=== PATIENT | female | born 1965 | race Caucasian/White ===

== ENCOUNTER → 2017-02-11 | Outpatient (CLI) | payer MEDICARE ==
[~2017-02-11] MED LIST: ADVAIR DISKUS 11 DSK; AMBIEN5 MG PO; ASPIRIN81 M1 PO; BACTRIM 400 MG-1 TAB PO; CELLCEPT500 MG PO; CLINDAMYCIN HC300 MG PO; COMPAZINE10 MG PO; HYDROCODONE BIT1 T11 PO; IBUPROFEN 30 M800 MG; LABETALOL HCL200 MG PO; LABETALOL100 MG PO; LEVOFLOXACIN500 MG PO; LEVOXYL0.125 MG PO; LIPITOR40 MG PO; MAGNESIUM250 M1 PO; MULTIPLE VITAMI1 TAB PO; PAXIL40 MG PO; PHARMAC PO; PHOSLYRA; PLAVIX75 MG PO; PREDNISONE10 MG PO; PROGRAF1 MG PO; RENAL MULTIVITA1 TAB; REQUIP0.25 MG; SENSIPAR90 MG; THE MEDICINE S400 IU PO; VALCYTE450 MG PO; VICODIN 5/500 505 M1; VICODIN 5/500 505 MG PO; VITAMIN B COMPL1 CAP PO; XANAX0.5 MG PO; ZANTAC 150150 MG PO; ZOFRAN ODT4 MG SL
[2017-02-11 14:21] LABS: BILIRUBIN NEGATIVE (NEGATIVE); BLOOD NEGATIVE (NEGATIVE); CLARITY SL CLOUDY (CLEAR); COLOR YELLOW (YELLOW); GLUCOSE NEGATIVE (NEGATIVE); KETONE NEGATIVE (NEGATIVE); LEUKO ESTERASE NEGATIVE (NEGATIVE); NITRITE NEGATIVE (NEGATIVE); PH 5.5 (5.0-9.0); PROTEIN NEGATIVE (NEGATIVE); UROBILINOGEN 0.2 E.U./dl (0.2-1.0)
[2017-02-11 14:26] LABS: BASO # 0.1 10*3/uL (0.0-0.1); BASO % 0.5 % (0.0-1.0); EOS # 0.1 10*3/uL (0.0-0.4); EOS % 0.8 % (1.0-4.0); HEMATOCRIT 45.9 % (37.0-47.0); HEMOGLOBIN 14.4 g/dl (12.0-16.0); IG # 0.1 10*3/uL (0.0-0.1); LYMPH # 0.6 10*3/uL (1.3-4.4); LYMPH % 4.7 % (27.0-41.0); MEAN CELL VOLUME 96.2 fl (81.0-99.0); MEAN CORPUSCULAR HGB 30.2 pg (27.0-31.0); MEAN CORPUSCULAR HGB CONC 31.4 g/dl (33.0-37.0); MEAN PLATELET VOLUME 10.6 fl (9.6-12.3); MONO # 0.6 10*3/uL (0.1-1.0); MONO % 4.2 % (3.0-9.0); NEUT # 11.8 10*3/uL (2.3-7.9); NEUT % 89.3 % (47.0-73.0); PLATELET COUNT AUTOMATED 223 10*3/uL (130-400); RED BLOOD COUNT 4.77 10*6/uL (4.10-5.10); RED CELL DISTRI WIDTH 15.5 % (0-14.5); WHITE BLOOD COUNT 13.2 10*3/uL (4.8-10.8)
[2017-02-11 14:46] LABS: ALBUMIN 3.6 gm/dl (3.1-4.5); BILIRUBIN, TOTAL 0.4 mg/dl (0.2-1.0); MAGNESIUM 1.7 mg/dL (1.5-2.1); PHOSPHOROUS 1.8 mg/dL (2.5-4.9); POTASSIUM 4.5 mmol/L (3.5-5.1); TOTAL PROTEIN 6.6 gm/dL (6.4-8.2); URIC ACID 7.9 mg/dL (2.6-6.0)
== END | disposition home or self-care (01) ==
LOC: LAB 13:48
PROVIDERS: Internal Medicine Nephrology
DX: Z94.0 Kidney transplant status (principal)

== ENCOUNTER → 2017-03-03 | Outpatient (CLI) | payer MEDICARE ==
[2017-03-03 11:06] LABS: BILIRUBIN NEGATIVE (NEGATIVE); BLOOD 3+ (NEGATIVE); CLARITY SL CLOUDY (CLEAR); COLOR YELLOW (YELLOW); GLUCOSE NEGATIVE (NEGATIVE); KETONE NEGATIVE (NEGATIVE); LEUKO ESTERASE TRACE (NEGATIVE); NITRITE NEGATIVE (NEGATIVE); PROTEIN NEGATIVE (NEGATIVE); UROBILINOGEN 0.2 E.U./dl (0.2-1.0)
[2017-03-03 11:06] LABS: BASO # 0.1 10*3/uL (0.0-0.1); BASO % 0.6 % (0.0-1.0); EOS # 0.2 10*3/uL (0.0-0.4); EOS % 2.2 % (1.0-4.0); HEMATOCRIT 47.7 % (37.0-47.0); HEMOGLOBIN 14.9 g/dl (12.0-16.0); LYMPH # 0.9 10*3/uL (1.3-4.4); LYMPH % 11.3 % (27.0-41.0); MEAN CELL VOLUME 95.4 fl (81.0-99.0); MEAN CORPUSCULAR HGB 29.8 pg (27.0-31.0); MEAN CORPUSCULAR HGB CONC 31.2 g/dl (33.0-37.0); MEAN PLATELET VOLUME 10.4 fl (9.6-12.3); MONO # 0.6 10*3/uL (0.1-1.0); MONO % 8.1 % (3.0-9.0); NEUT % 77.3 % (47.0-73.0); PLATELET COUNT AUTOMATED 223 10*3/uL (130-400); RED CELL DISTRI WIDTH 14.6 % (0-14.5); WHITE BLOOD COUNT 7.8 10*3/uL (4.8-10.8)
[2017-03-03 11:37] LABS: ALBUMIN 3.6 gm/dl (3.1-4.5); BILIRUBIN, TOTAL 0.6 mg/dl (0.2-1.0); MAGNESIUM 1.9 mg/dL (1.5-2.1); PHOSPHOROUS 2.7 mg/dL (2.5-4.9); POTASSIUM 4.8 mmol/L (3.5-5.1); TOTAL PROTEIN 6.7 gm/dL (6.4-8.2); URIC ACID 7.8 mg/dL (2.6-6.0)
[2017-03-03 11:53] LABS: VITAMIN D, 25-HYDROXY 31.8 ng/mL (30-100)
== END | disposition home or self-care (01) ==
LOC: LAB 10:14
PROVIDERS: Internal Medicine Nephrology
DX: I10 Essential (primary) hypertension (principal); E21.3 Hyperparathyroidism, unspecified; Z94.0 Kidney transplant status

== ENCOUNTER → 2017-07-02 | Outpatient (CLI) | payer MEDICARE ==
[2017-07-02 10:48] LABS: BASO # 0.1 10*3/uL (0.0-0.1); BASO % 0.9 % (0.0-1.0); EOS # 0.3 10*3/uL (0.0-0.4); EOS % 3.5 % (1.0-4.0); HEMATOCRIT 39.9 % (37.0-47.0); HEMOGLOBIN 12.6 g/dl (12.0-16.0); LYMPH % 12.4 % (27.0-41.0); MEAN CELL VOLUME 95.5 fl (81.0-99.0); MEAN CORPUSCULAR HGB 30.1 pg (27.0-31.0); MEAN CORPUSCULAR HGB CONC 31.6 g/dl (33.0-37.0); MONO # 0.6 10*3/uL (0.1-1.0); MONO % 8.1 % (3.0-9.0); NEUT # 5.9 10*3/uL (2.3-7.9); NEUT % 74.5 % (47.0-73.0); PLATELET COUNT AUTOMATED 256 10*3/uL (130-400); RED BLOOD COUNT 4.18 10*6/uL (4.10-5.10); RED CELL DISTRI WIDTH 14.6 % (0-14.5); WHITE BLOOD COUNT 7.9 10*3/uL (4.8-10.8)
[2017-07-02 10:59] LABS: BILIRUBIN NEGATIVE (NEGATIVE); BLOOD 3+ (NEGATIVE); CLARITY CLOUDY (CLEAR); COLOR YELLOW (YELLOW); GLUCOSE NEGATIVE (NEGATIVE); KETONE NEGATIVE (NEGATIVE); LEUKO ESTERASE NEGATIVE (NEGATIVE); NITRITE NEGATIVE (NEGATIVE); PH 5.5 (5.0-9.0); SPECIFIC GRAVITY 1.015 (1.005-1.030); UROBILINOGEN 0.2 E.U./dl (0.2-1.0)
[2017-07-02 11:10] LABS: ALBUMIN 3.5 gm/dl (3.1-4.5); CREATININE 2.19 mg/dL (0.55-1.02); PHOSPHOROUS 3.2 mg/dL (2.5-4.9); POTASSIUM 3.9 mmol/L (3.5-5.1); TOTAL PROTEIN 6.6 gm/dL (6.4-8.2); URIC ACID 7.3 mg/dL (2.6-6.0)
[2017-07-02 12:28] LABS: VITAMIN D, 25-HYDROXY 24.8 ng/mL (30-100)
[2017-07-02 12:40] LABS: PTH INTACT 135.6 pg/mL (14.0-72.0)
== END | disposition home or self-care (01) ==
LOC: LAB 10:21
PROVIDERS: Internal Medicine Nephrology
DX: E21.3 Hyperparathyroidism, unspecified (principal); Z94.0 Kidney transplant status

== ENCOUNTER → 2017-07-23 | Outpatient (CLI) | payer MEDICARE ==
[2017-07-23 11:50] LABS: BASO # 0.1 10*3/uL (0.0-0.1); BASO % 0.8 % (0.0-1.0); EOS # 0.2 10*3/uL (0.0-0.4); HEMATOCRIT 43.9 % (37.0-47.0); HEMOGLOBIN 14.1 g/dl (12.0-16.0); LYMPH # 1.4 10*3/uL (1.3-4.4); LYMPH % 15.6 % (27.0-41.0); MEAN CELL VOLUME 95.9 fl (81.0-99.0); MEAN CORPUSCULAR HGB 30.8 pg (27.0-31.0); MEAN CORPUSCULAR HGB CONC 32.1 g/dl (33.0-37.0); MEAN PLATELET VOLUME 9.6 fl (9.6-12.3); MONO # 0.6 10*3/uL (0.1-1.0); MONO % 6.8 % (3.0-9.0); NEUT # 6.6 10*3/uL (2.3-7.9); NEUT % 74.5 % (47.0-73.0); PLATELET COUNT AUTOMATED 252 10*3/uL (130-400); RED BLOOD COUNT 4.58 10*6/uL (4.10-5.10); RED CELL DISTRI WIDTH 13.8 % (0-14.5); WHITE BLOOD COUNT 8.8 10*3/uL (4.8-10.8)
[2017-07-23 12:15] LABS: CREATININE 2.3 mg/dL (0.55-1.02); PHOSPHOROUS 3.4 mg/dL (2.5-4.9); POTASSIUM 3.9 mmol/L (3.5-5.1); URIC ACID 7.6 mg/dL (2.6-6.0)
== END | disposition home or self-care (01) ==
LOC: LAB 11:33
PROVIDERS: Internal Medicine Nephrology
DX: D89.9 Disorder involving the immune mechanism, unspecified (principal); E83.40 Disorders of magnesium metabolism, unspecified; T86.90 Unspecified complication of unspecified transplanted organ and tissue; Z94.0 Kidney transplant status; Z79.899 Other long term (current) drug therapy

== ENCOUNTER → 2017-08-03 | Outpatient (CLI) | payer MEDICARE ==
[2017-08-03 10:20] LABS: BASO # 0.1 10*3/uL (0.0-0.1); BASO % 0.6 % (0.0-1.0); EOS # 0.3 10*3/uL (0.0-0.4); EOS % 3.3 % (1.0-4.0); HEMATOCRIT 43.4 % (37.0-47.0); HEMOGLOBIN 13.5 g/dl (12.0-16.0); LYMPH # 0.8 10*3/uL (1.3-4.4); LYMPH % 10.5 % (27.0-41.0); MEAN CELL VOLUME 95.2 fl (81.0-99.0); MEAN CORPUSCULAR HGB 29.6 pg (27.0-31.0); MEAN CORPUSCULAR HGB CONC 31.1 g/dl (33.0-37.0); MEAN PLATELET VOLUME 9.3 fl (9.6-12.3); MONO # 0.5 10*3/uL (0.1-1.0); MONO % 5.7 % (3.0-9.0); NEUT # 6.2 10*3/uL (2.3-7.9); NEUT % 79.4 % (47.0-73.0); PLATELET COUNT AUTOMATED 255 10*3/uL (130-400); RED BLOOD COUNT 4.56 10*6/uL (4.10-5.10); RED CELL DISTRI WIDTH 14.1 % (0-14.5); WHITE BLOOD COUNT 7.9 10*3/uL (4.8-10.8)
[2017-08-03 10:31] LABS: BILIRUBIN NEGATIVE (NEGATIVE); BLOOD NEGATIVE (NEGATIVE); CLARITY SL CLOUDY (CLEAR); COLOR YELLOW (YELLOW); GLUCOSE NEGATIVE (NEGATIVE); KETONE NEGATIVE (NEGATIVE); NITRITE NEGATIVE (NEGATIVE); SPECIFIC GRAVITY 1.015 (1.005-1.030); UROBILINOGEN 0.2 E.U./dl (0.2-1.0)
[2017-08-03 10:36] LABS: LEUKO ESTERASE NEGATIVE (NEGATIVE)
[2017-08-03 10:55] LABS: ALBUMIN 3.6 gm/dl (3.1-4.5); CREATININE 2.27 mg/dL (0.55-1.02); PHOSPHOROUS 2.3 mg/dL (2.5-4.9); TOTAL PROTEIN 6.6 gm/dL (6.4-8.2); URIC ACID 7.5 mg/dL (2.6-6.0)
[2017-08-03 11:31] LABS: PTH INTACT 73.4 pg/mL (14.0-72.0); VITAMIN D, 25-HYDROXY 25.2 ng/mL (30-100)
== END | disposition home or self-care (01) ==
LOC: LAB 09:54
PROVIDERS: Internal Medicine Nephrology
DX: I10 Essential (primary) hypertension (principal); D89.9 Disorder involving the immune mechanism, unspecified; T86.90 Unspecified complication of unspecified transplanted organ and tissue; E83.40 Disorders of magnesium metabolism, unspecified; Z79.899 Other long term (current) drug therapy; Z94.0 Kidney transplant status

== ENCOUNTER → 2017-08-10 | Outpatient (CLI) | payer MEDICARE ==
[2017-08-10 08:53] LABS: BASO # 0.1 10*3/uL (0.0-0.1); BASO % 0.5 % (0.0-1.0); EOS # 0.3 10*3/uL (0.0-0.4); EOS % 2.8 % (1.0-4.0); HEMATOCRIT 42.1 % (37.0-47.0); HEMOGLOBIN 13.6 g/dl (12.0-16.0); LYMPH # 1.1 10*3/uL (1.3-4.4); LYMPH % 11.5 % (27.0-41.0); MEAN CELL VOLUME 94.8 fl (81.0-99.0); MEAN CORPUSCULAR HGB 30.6 pg (27.0-31.0); MEAN CORPUSCULAR HGB CONC 32.3 g/dl (33.0-37.0); MEAN PLATELET VOLUME 9.7 fl (9.6-12.3); MONO # 0.7 10*3/uL (0.1-1.0); MONO % 6.9 % (3.0-9.0); NEUT # 7.7 10*3/uL (2.3-7.9); NEUT % 77.8 % (47.0-73.0); PLATELET COUNT AUTOMATED 249 10*3/uL (130-400); RED BLOOD COUNT 4.44 10*6/uL (4.10-5.10); RED CELL DISTRI WIDTH 14.2 % (0-14.5); WHITE BLOOD COUNT 9.9 10*3/uL (4.8-10.8)
[2017-08-10 09:18] LABS: CREATININE 1.86 mg/dL (0.55-1.02); PHOSPHOROUS 2.7 mg/dL (2.5-4.9); POTASSIUM 3.3 mmol/L (3.5-5.1); URIC ACID 8.2 mg/dL (2.6-6.0)
== END | disposition home or self-care (01) ==
LOC: LAB 08:22
PROVIDERS: Internal Medicine Nephrology
DX: D89.9 Disorder involving the immune mechanism, unspecified (principal); E83.40 Disorders of magnesium metabolism, unspecified; T86.90 Unspecified complication of unspecified transplanted organ and tissue; Z79.899 Other long term (current) drug therapy; Z94.0 Kidney transplant status

== ENCOUNTER → 2017-08-18 | Outpatient (CLI) | payer MEDICARE ==
[2017-08-18 12:08] LABS: CREATININE 1.65 mg/dL (0.55-1.02); PHOSPHOROUS 2.6 mg/dL (2.5-4.9); POTASSIUM 4.1 mmol/L (3.5-5.1); URIC ACID 6.5 mg/dL (2.6-6.0)
[2017-08-18 12:16] LABS: BASO # 0.1 10*3/uL (0.0-0.1); BASO % 0.5 % (0.0-1.0); EOS # 0.2 10*3/uL (0.0-0.4); EOS % 1.6 % (1.0-4.0); HEMATOCRIT 44.7 % (37.0-47.0); HEMOGLOBIN 14.2 g/dl (12.0-16.0); LYMPH # 1.2 10*3/uL (1.3-4.4); MEAN CELL VOLUME 94.5 fl (81.0-99.0); MEAN CORPUSCULAR HGB CONC 31.8 g/dl (33.0-37.0); MEAN PLATELET VOLUME 9.9 fl (9.6-12.3); MONO # 0.8 10*3/uL (0.1-1.0); MONO % 7.7 % (3.0-9.0); NEUT # 8.2 10*3/uL (2.3-7.9); NEUT % 78.6 % (47.0-73.0); PLATELET COUNT AUTOMATED 324 10*3/uL (130-400); RED BLOOD COUNT 4.73 10*6/uL (4.10-5.10); RED CELL DISTRI WIDTH 14.6 % (0-14.5); WHITE BLOOD COUNT 10.5 10*3/uL (4.8-10.8)
== END | disposition home or self-care (01) ==
LOC: LAB 11:35
PROVIDERS: Internal Medicine Nephrology
DX: D89.9 Disorder involving the immune mechanism, unspecified (principal); T86.90 Unspecified complication of unspecified transplanted organ and tissue; E83.40 Disorders of magnesium metabolism, unspecified; Z94.0 Kidney transplant status; Z79.899 Other long term (current) drug therapy

== ENCOUNTER → 2017-10-08 | Outpatient (CLI) | payer MEDICARE ==
[2017-10-08 14:59] LABS: BASO # 0.1 10*3/uL (0.0-0.1); BASO % 1.1 % (0.0-1.0); EOS # 0.2 10*3/uL (0.0-0.4); EOS % 2.2 % (1.0-4.0); HEMATOCRIT 46.5 % (37.0-47.0); LYMPH % 13.6 % (27.0-41.0); MEAN CELL VOLUME 91.7 fl (81.0-99.0); MEAN CORPUSCULAR HGB 29.6 pg (27.0-31.0); MEAN CORPUSCULAR HGB CONC 32.3 g/dl (33.0-37.0); MEAN PLATELET VOLUME 10.1 fl (9.6-12.3); MONO # 0.6 10*3/uL (0.1-1.0); MONO % 7.9 % (3.0-9.0); NEUT # 5.7 10*3/uL (2.3-7.9); NEUT % 74.8 % (47.0-73.0); PLATELET COUNT AUTOMATED 275 10*3/uL (130-400); RED BLOOD COUNT 5.07 10*6/uL (4.10-5.10); RED CELL DISTRI WIDTH 14.5 % (0-14.5); WHITE BLOOD COUNT 7.6 10*3/uL (4.8-10.8)
[2017-10-08 15:07] LABS: BILIRUBIN NEGATIVE (NEGATIVE); BLOOD 3+ (NEGATIVE); CLARITY CLOUDY (CLEAR); COLOR YELLOW (YELLOW); GLUCOSE NEGATIVE (NEGATIVE); KETONE NEGATIVE (NEGATIVE); LEUKO ESTERASE NEGATIVE (NEGATIVE); NITRITE NEGATIVE (NEGATIVE); PH 5.5 (5.0-9.0); UROBILINOGEN 0.2 E.U./dl (0.2-1.0)
[2017-10-08 15:13] LABS: ALBUMIN 3.8 gm/dl (3.1-4.5); CREATININE 2.39 mg/dL (0.55-1.02); PHOSPHOROUS 3.3 mg/dL (2.5-4.9); POTASSIUM 4.4 mmol/L (3.5-5.1); TOTAL PROTEIN 6.9 gm/dL (6.4-8.2); URIC ACID 8.5 mg/dL (2.6-6.0)
[2017-10-08 15:45] LABS: PTH INTACT 76.7 pg/mL (14.0-72.0); VITAMIN D, 25-HYDROXY 26.6 ng/mL (30-100)
== END | disposition home or self-care (01) ==
LOC: LAB 14:19
PROVIDERS: Internal Medicine Nephrology
DX: I10 Essential (primary) hypertension (principal); E21.3 Hyperparathyroidism, unspecified; Z94.0 Kidney transplant status

== ENCOUNTER → 2017-10-16 | Outpatient (CLI) | payer MEDICARE ==
[2017-10-16 10:49] LABS: BILIRUBIN NEGATIVE (NEGATIVE); BLOOD 3+ (NEGATIVE); CLARITY CLEAR (CLEAR); COLOR YELLOW (YELLOW); GLUCOSE NEGATIVE (NEGATIVE); KETONE NEGATIVE (NEGATIVE); LEUKO ESTERASE NEGATIVE (NEGATIVE); NITRITE NEGATIVE (NEGATIVE); PH 5.5 (5.0-9.0); UROBILINOGEN 0.2 E.U./dl (0.2-1.0)
[2017-10-16 10:52] LABS: BASO # 0.1 10*3/uL (0.0-0.1); BASO % 1.1 % (0.0-1.0); EOS # 0.3 10*3/uL (0.0-0.4); EOS % 4.7 % (1.0-4.0); HEMATOCRIT 47.2 % (37.0-47.0); HEMOGLOBIN 14.9 g/dl (12.0-16.0); LYMPH # 0.8 10*3/uL (1.3-4.4); LYMPH % 12.4 % (27.0-41.0); MEAN CELL VOLUME 93.3 fl (81.0-99.0); MEAN CORPUSCULAR HGB 29.4 pg (27.0-31.0); MEAN CORPUSCULAR HGB CONC 31.6 g/dl (33.0-37.0); MEAN PLATELET VOLUME 9.8 fl (9.6-12.3); MONO # 0.5 10*3/uL (0.1-1.0); MONO % 7.8 % (3.0-9.0); NEUT # 4.8 10*3/uL (2.3-7.9); NEUT % 73.5 % (47.0-73.0); PLATELET COUNT AUTOMATED 317 10*3/uL (130-400); RED BLOOD COUNT 5.06 10*6/uL (4.10-5.10); RED CELL DISTRI WIDTH 14.8 % (0-14.5); WHITE BLOOD COUNT 6.5 10*3/uL (4.8-10.8)
[2017-10-16 10:56] LABS: BACTERIA TRACE
[2017-10-16 11:22] LABS: ALBUMIN 3.5 gm/dl (3.1-4.5); CREATININE 1.98 mg/dL (0.55-1.02); PHOSPHOROUS 2.9 mg/dL (2.5-4.9); POTASSIUM 4.2 mmol/L (3.5-5.1); TOTAL PROTEIN 6.7 gm/dL (6.4-8.2); URIC ACID 7.2 mg/dL (2.6-6.0)
== END | disposition home or self-care (01) ==
LOC: LAB 10:25
PROVIDERS: Internal Medicine Nephrology
DX: I10 Essential (primary) hypertension (principal); E83.40 Disorders of magnesium metabolism, unspecified; D89.9 Disorder involving the immune mechanism, unspecified; Z79.899 Other long term (current) drug therapy; Z94.0 Kidney transplant status

== ENCOUNTER → 2017-11-12 | Outpatient (CLI) | payer MEDICARE ==
[2017-11-12 10:44] LABS: BASO # 0.1 10*3/uL (0.0-0.1); BASO % 0.9 % (0.0-1.0); EOS # 0.3 10*3/uL (0.0-0.4); EOS % 3.6 % (1.0-4.0); HEMATOCRIT 48.6 % (37.0-47.0); HEMOGLOBIN 15.2 g/dl (12.0-16.0); LYMPH % 11.9 % (27.0-41.0); MEAN CELL VOLUME 95.7 fl (81.0-99.0); MEAN CORPUSCULAR HGB 29.9 pg (27.0-31.0); MEAN CORPUSCULAR HGB CONC 31.3 g/dl (33.0-37.0); MEAN PLATELET VOLUME 10.2 fl (9.6-12.3); MONO # 0.5 10*3/uL (0.1-1.0); MONO % 6.5 % (3.0-9.0); NEUT # 6.1 10*3/uL (2.3-7.9); NEUT % 76.6 % (47.0-73.0); PLATELET COUNT AUTOMATED 244 10*3/uL (130-400); RED BLOOD COUNT 5.08 10*6/uL (4.10-5.10); RED CELL DISTRI WIDTH 15.2 % (0-14.5)
[2017-11-12 11:02] LABS: CREATININE 1.74 mg/dL (0.55-1.02); PHOSPHOROUS 2.7 mg/dL (2.5-4.9); POTASSIUM 3.8 mmol/L (3.5-5.1); URIC ACID 7.2 mg/dL (2.6-6.0)
== END | disposition home or self-care (01) ==
LOC: LAB 10:18
PROVIDERS: Specialist
DX: E83.40 Disorders of magnesium metabolism, unspecified (principal); D89.9 Disorder involving the immune mechanism, unspecified; T86.90 Unspecified complication of unspecified transplanted organ and tissue; Z79.899 Other long term (current) drug therapy

== ENCOUNTER → 2017-12-11 | Outpatient (CLI) | payer MEDICARE ==
[2017-12-11 10:51] LABS: BASO # 0.1 10*3/uL (0.0-0.1); BASO % 0.7 % (0.0-1.0); EOS # 0.3 10*3/uL (0.0-0.4); HEMATOCRIT 48.4 % (37.0-47.0); HEMOGLOBIN 15.1 g/dl (12.0-16.0); LYMPH # 1.1 10*3/uL (1.3-4.4); LYMPH % 12.7 % (27.0-41.0); MEAN CELL VOLUME 95.5 fl (81.0-99.0); MEAN CORPUSCULAR HGB 29.8 pg (27.0-31.0); MEAN CORPUSCULAR HGB CONC 31.2 g/dl (33.0-37.0); MEAN PLATELET VOLUME 10.2 fl (9.6-12.3); MONO # 0.6 10*3/uL (0.1-1.0); MONO % 7.3 % (3.0-9.0); NEUT # 6.4 10*3/uL (2.3-7.9); NEUT % 75.8 % (47.0-73.0); PLATELET COUNT AUTOMATED 219 10*3/uL (130-400); RED BLOOD COUNT 5.07 10*6/uL (4.10-5.10); RED CELL DISTRI WIDTH 15.6 % (0-14.5); WHITE BLOOD COUNT 8.4 10*3/uL (4.8-10.8)
[2017-12-11 10:59] LABS: CREATININE 1.82 mg/dL (0.55-1.02); POTASSIUM 3.9 mmol/L (3.5-5.1); URIC ACID 6.1 mg/dL (2.6-6.0)
== END | disposition home or self-care (01) ==
LOC: LAB 10:18
PROVIDERS: Specialist
DX: E83.40 Disorders of magnesium metabolism, unspecified (principal); D89.9 Disorder involving the immune mechanism, unspecified; T86.90 Unspecified complication of unspecified transplanted organ and tissue; Z94.0 Kidney transplant status; Z79.899 Other long term (current) drug therapy

== ENCOUNTER → 2017-12-17 | Outpatient (CLI) | payer MEDICARE ==
[2017-12-17 10:57] LABS: BASO # 0.1 10*3/uL (0.0-0.1); BASO % 0.4 % (0.0-1.0); EOS # 0.1 10*3/uL (0.0-0.4); EOS % 0.7 % (1.0-4.0); HEMATOCRIT 49.9 % (37.0-47.0); HEMOGLOBIN 15.4 g/dl (12.0-16.0); LYMPH % 8.9 % (27.0-41.0); MEAN CELL VOLUME 94.5 fl (81.0-99.0); MEAN CORPUSCULAR HGB 29.2 pg (27.0-31.0); MEAN CORPUSCULAR HGB CONC 30.9 g/dl (33.0-37.0); MEAN PLATELET VOLUME 10.2 fl (9.6-12.3); MONO # 0.6 10*3/uL (0.1-1.0); MONO % 5.4 % (3.0-9.0); NEUT # 9.8 10*3/uL (2.3-7.9); PLATELET COUNT AUTOMATED 250 10*3/uL (130-400); RED BLOOD COUNT 5.28 10*6/uL (4.10-5.10); RED CELL DISTRI WIDTH 15.6 % (0-14.5); WHITE BLOOD COUNT 11.7 10*3/uL (4.8-10.8)
[2017-12-17 11:15] LABS: CREATININE 1.62 mg/dL (0.55-1.02); PHOSPHOROUS 3.3 mg/dL (2.5-4.9); POTASSIUM 4.4 mmol/L (3.5-5.1)
== END | disposition home or self-care (01) ==
LOC: LAB 10:11
PROVIDERS: Specialist
DX: Z94.0 Kidney transplant status (principal); D89.9 Disorder involving the immune mechanism, unspecified; T86.90 Unspecified complication of unspecified transplanted organ and tissue; Z79.899 Other long term (current) drug therapy

== ENCOUNTER 2018-01-09 21:46 | Emergency (ER) | payer MEDICARE ==
[~2018-01-09] VITALS: Ht 162.5 cm; Wt 113.4 kg
[2018-01-09 23:00] VITALS: BP 156/79
== END 2018-01-09 23:26 | disposition short-term general hospital (02) ==
LOC: ED 21:46
DX: T82.898A Other specified complication of vascular prosthetic devices, implants and grafts, initial encounter (principal); Z94.0 Kidney transplant status; Z79.899 Other long term (current) drug therapy; Z79.82 Long term (current) use of aspirin

== ENCOUNTER → 2018-04-30 | Outpatient (CLI) | payer MEDICARE ==
[2018-04-30 10:44] LABS: BASO # 0.1 10*3/uL (0.0-0.1); BASO % 0.8 % (0.0-1.0); EOS # 0.3 10*3/uL (0.0-0.4); EOS % 3.9 % (1.0-4.0); HEMATOCRIT 50.1 % (37.0-47.0); HEMOGLOBIN 15.9 g/dl (12.0-16.0); LYMPH # 0.9 10*3/uL (1.3-4.4); LYMPH % 12.6 % (27.0-41.0); MEAN CELL VOLUME 94.9 fl (81.0-99.0); MEAN CORPUSCULAR HGB 30.1 pg (27.0-31.0); MEAN CORPUSCULAR HGB CONC 31.7 g/dl (33.0-37.0); MEAN PLATELET VOLUME 9.6 fl (9.6-12.3); MONO # 0.6 10*3/uL (0.1-1.0); MONO % 8.1 % (3.0-9.0); NEUT # 5.5 10*3/uL (2.3-7.9); NEUT % 73.9 % (47.0-73.0); PLATELET COUNT AUTOMATED 257 10*3/uL (130-400); RED BLOOD COUNT 5.28 10*6/uL (4.10-5.10); RED CELL DISTRI WIDTH 16.4 % (0-14.5); WHITE BLOOD COUNT 7.4 10*3/uL (4.8-10.8)
[2018-04-30 11:17] LABS: CREATININE 1.54 mg/dL (0.55-1.02); PHOSPHOROUS 2.4 mg/dL (2.5-4.9); POTASSIUM 4.2 mmol/L (3.5-5.1); URIC ACID 5.5 mg/dL (2.6-6.0)
[2018-04-30 11:43] LABS: PTH INTACT 110.4 pg/mL (18.5-88.0); VITAMIN D, 25-HYDROXY 21.4 ng/mL (30-100)
== END | disposition home or self-care (01) ==
LOC: LAB 10:10
PROVIDERS: Internal Medicine; Internal Medicine Nephrology; Specialist
DX: T86.10 Unspecified complication of kidney transplant (principal); D89.9 Disorder involving the immune mechanism, unspecified; E03.9 Hypothyroidism, unspecified; E21.3 Hyperparathyroidism, unspecified; N18.4 Chronic kidney disease, stage 4 (severe); E66.01 Morbid (severe) obesity due to excess calories; Z79.899 Other long term (current) drug therapy; Z94.0 Kidney transplant status; Y83.8 Other surgical procedures as the cause of abnormal reaction of the patient, or of later complication, without mention of misadventure at the time of the procedure

== ENCOUNTER → 2018-06-01 | Outpatient (CLI) | payer MEDICARE ==
[2018-06-01 10:58] LABS: BILIRUBIN NEGATIVE (NEGATIVE); BLOOD 3+ (NEGATIVE); CLARITY SL CLOUDY (CLEAR); COLOR YELLOW (YELLOW); GLUCOSE NEGATIVE (NEGATIVE); KETONE NEGATIVE (NEGATIVE); LEUKO ESTERASE TRACE (NEGATIVE); NITRITE NEGATIVE (NEGATIVE); PH 5.5 (5.0-9.0); SPECIFIC GRAVITY 1.015 (1.005-1.030); UROBILINOGEN 0.2 E.U./dl (0.2-1.0)
[2018-06-01 10:59] LABS: BASO # 0.1 10*3/uL (0.0-0.1); BASO % 0.7 % (0.0-1.0); EOS # 0.2 10*3/uL (0.0-0.4); EOS % 1.8 % (1.0-4.0); HEMATOCRIT 50.5 % (37.0-47.0); HEMOGLOBIN 15.5 g/dl (12.0-16.0); LYMPH # 0.9 10*3/uL (1.3-4.4); LYMPH % 8.7 % (27.0-41.0); MEAN CELL VOLUME 96.7 fl (81.0-99.0); MEAN CORPUSCULAR HGB 29.7 pg (27.0-31.0); MEAN CORPUSCULAR HGB CONC 30.7 g/dl (33.0-37.0); MEAN PLATELET VOLUME 9.4 fl (9.6-12.3); MONO # 0.8 10*3/uL (0.1-1.0); MONO % 7.3 % (3.0-9.0); NEUT # 8.5 10*3/uL (2.3-7.9); NEUT % 80.6 % (47.0-73.0); PLATELET COUNT AUTOMATED 333 10*3/uL (130-400); RED BLOOD COUNT 5.22 10*6/uL (4.10-5.10); WHITE BLOOD COUNT 10.6 10*3/uL (4.8-10.8)
[2018-06-01 11:21] LABS: ALBUMIN 3.4 gm/dl (3.1-4.5); CREATININE 1.76 mg/dL (0.55-1.02); PHOSPHOROUS 3.2 mg/dL (2.5-4.9); POTASSIUM 3.9 mmol/L (3.5-5.1); URIC ACID 5.2 mg/dL (2.6-6.0)
[2018-06-01 11:23] LABS: BACTERIA 2+; EPITHELIAL CELLS 20-25; RBC 21-30 rbc/hpf (0-2)
== END | disposition home or self-care (01) ==
LOC: LAB 10:30
PROVIDERS: Internal Medicine Nephrology
DX: E21.3 Hyperparathyroidism, unspecified (principal); Z94.0 Kidney transplant status

== ENCOUNTER 2018-12-10 16:46 | Inpatient (IN) | payer MEDICARE ==
[2018-12-10] VITALS (9 sets, daily range): BP systolic 110–149; BP diastolic 64–85
[~2018-12-10] VITALS: Ht 160 cm; Wt 109.3 kg
--- NOTE | ~2018-12-10 | EKG ---
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
--- NOTE | ~2018-12-10 | EKG ---
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
--- NOTE | ~2018-12-10 | EKG ---
[place], [place] ELECTROCARDIOGRAM REPORT NAME: MASSIMO MORENO UNIT #: [id number] ROOM: DOCTOR: CODY DRAFT REPORT BIRTHDATE: [birth year] [facility] Test Date: 2018-12-10 Test Time: 20:04:59 Pat Name: MASSIMO MORENO Department: Room: Gender: Gold Buyer: : 1965 Requested By: YU SAUER Order Number: [id number] Reading MD: Measurements Intervals [place] Rate: 63 P: 44 [place]: 170 QRS: 29 QRSD: 170 T: 2 QT: 504 QTc: 517 Interpretive Statements Sinus rhythm Right bundle branch block No previous ECG available for comparison CM:EKGRPT:ELECTROCARDIOGRAM REPORT 03 [id number] YU ROSS DRAFT REPORT YU SAUER M.D.
--- NOTE | ~2018-12-10 | EKG ---
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
--- NOTE | ~2018-12-10 | CON ---
[place], [place] REPORT OF CONSULTATION NAME: [facility]IMO [facility]ORENO [id number] UNIT #: [id number] ROOM: 403 DOCTOR: GIANNI MONTANEZ MD BIRTHDATE: [birth year] DOS: 12/11/2018 NEPHROLOGY CONSULTATION REASON FOR CONSULTATION: Acute on chronic kidney disease with history of kidney transplant/patient known to me. HISTORY OF PRESENT ILLNESS: This is a 53-year-old female. She gives a history of end-stage renal disease secondary to polycystic kidney disease. The patient has a baseline creatinine that looks to be in the middle to upper ones range. She underwent a donor kidney transplant in 2013. She follows with my partner, Dr. Troy, in the office. She maintains on immunosuppression with Prograf 3 mg twice a day and prednisone 10 mg daily, she states. She is not on MMF due to intolerance. Apparently, she has not been feeling well over the past week or so with nausea and some vomiting. She was unable to tolerate oral fluids or food very well and noted that she was not making as much urine and came to the hospital. She had a CT which was done without contrast, which showed no acute abdominal findings. The patient had a urinalysis which showed concerns for a UTI and she was started on broad spectrum antibiotics. She was given a few boluses of fluids and feels much better. Her creatinine was slightly higher than baseline on presentation, but has improved to 1.55 today. She tells me she was transplanted at [facility] 2013 and has been doing fairly well since then. She states this is her first hospitalization since transplant. ALLERGIES: Listed to IODINE. HOME MEDICATIONS: Reviewed in the chart. As mentioned, she was on the 10 mg of prednisone, apparently with details of that unclear. She also was on 3 mg twice a day of Prograf. She appeared to be on losartan, Lasix as needed, labetalol, amlodipine, allopurinol, to name a few. PAST MEDICAL HISTORY: 1. End-stage renal disease secondary to polycystic kidney disease, status post donor kidney transplant in 2013 as stated above. 2. Hypertension. 3. Gastroesophageal reflux disease. 4. Hypothyroidism. 5. History of previous AV graft. 6. . 7. Cardiac catheterization. 8. Vitamin D deficiency. 9. Hyperlipidemia. 10. Anxiety. FAMILY HISTORY: Positive for polycystic kidney disease. Otherwise, noncontributory. SOCIAL HISTORY: No tobacco, alcohol or illicit drugs. REVIEW OF SYSTEMS: As per HPI, otherwise a 10-point review of systems was [place], [place] REPORT OF CONSULTATION NAME: MASSIMO MORENO UNIT #: [id number] ROOM: 403 DOCTOR: GIANNI MONTANEZ MD BIRTHDATE: [birth year] reviewed and was negative. PHYSICAL EXAMINATION: VITAL SIGNS: Temperature afebrile, pulse 74, respiration rate 18, blood pressure 122/68. GENERAL: She is pleasant, awake, alert, oriented x 3, in no acute distress. HEENT: Shows no JVD. Sclerae are anicteric. Mucous membranes appear dry. Oropharynx is clear. NECK: Supple. Trachea is midline. There is no lymphadenopathy or thyromegaly. LUNGS: Fairly clear. No crackles, wheezing or rales. She is not using accessory muscles of respiration. HEART: S1, S2. No rub, thrill or gallop. ABDOMEN: Soft, nontender. There is no organomegaly or rigidity, rebound or guarding. There is no CVA tenderness. EXTREMITIES: No edema. There is no lower extremity lymphadenopathy. Distal pulses are present. SKIN: Showed overt rash. There is no petechia or purpura. Skin temperature warm. NEUROLOGIC: She is awake, alert and following commands. Cranial nerves intact. LABORATORY DATA: Hemoglobin 14.2, white count 10.1, platelets 283. BUN 14, creatinine 1.55, sodium 140, potassium 3.8, CO2 of 20, calcium 9.6, phosphorus 3.3, magnesium 2.0. IMPRESSION: 1. Status post donor kidney transplant in 2013 with a baseline creatinine in the middle to upper ones range. The patient has underlying polycystic kidney disease. 2. Acute on chronic kidney disease, likely related to prerenal factors. 3. Nausea and vomiting, which has improved. The etiology is not clear. 4. Probable urinary tract infection. 5. Hypertension. PLAN: 1. The patient is improving clinically. Continue fluids, IV for now. Continue to encourage oral fluid intake. 2. Dose medication for current creatinine clearance. 3. Await culture results. Ideally, Cipro may be a good choice on discharge for an oral medication to complete her antibiotics due to renal penetration. She did not seem to have any abdominal pain or hematuria or anything to suggest a cyst rupture, however. 4. Continue immunosuppression. She states that she is on 10 mg of prednisone. Would resume this. It seems her prednisone dose was skilled up a little bit for now. 5. From a renal standpoint, she would be stable for discharge tomorrow if her labs remained stable and she clinically has improved. Thank you for this consultation. [place], [place] REPORT OF CONSULTATION NAME: MASSIMO MORENO UNIT #: [id number] ROOM: 403 DOCTOR: GIANNI MONTANEZ MD BIRTHDATE: [birth year] GIANNI MONTANEZ MD CM:CONSTR:REPORT OF CONSULTATION 1500 12/27/18 0804 interface
[2018-12-10 17:02] LABS: BASO # 0.1 10*3/uL (0.0-0.1); BASO % 0.6 % (0.0-1.0); EOS # 0.1 10*3/uL (0.0-0.4); EOS % 0.7 % (1.0-4.0); HEMATOCRIT 50.2 % (37.0-47.0); HEMOGLOBIN 15.8 g/dl (12.0-16.0); LYMPH # 1.1 10*3/uL (1.3-4.4); LYMPH % 6.8 % (27.0-41.0); MEAN CELL VOLUME 95.6 fl (81.0-99.0); MEAN CORPUSCULAR HGB 30.1 pg (27.0-31.0); MEAN CORPUSCULAR HGB CONC 31.5 g/dl (33.0-37.0); MEAN PLATELET VOLUME 9.6 fl (9.6-12.3); MONO % 6.1 % (3.0-9.0); NEUT # 13.8 10*3/uL (2.3-7.9); NEUT % 85.2 % (47.0-73.0); PLATELET COUNT AUTOMATED 354 10*3/uL (130-400); RED BLOOD COUNT 5.25 10*6/uL (4.10-5.10); WHITE BLOOD COUNT 16.1 10*3/uL (4.8-10.8)
[2018-12-10 17:23] LABS: ACT PARTIAL THROMBO TIME 29.2 SECONDS (20.0-32.1)
[2018-12-10 17:28] LABS: ALBUMIN 3.5 gm/dl (3.1-4.5); ALKALINE PHOSPHATASE 120 U/L (45-117); BUN 16 mg/dl (7-24); CHLORIDE 104 mmol/L (98-107); CREATININE 2.09 mg/dL (0.55-1.02); POTASSIUM 3.6 mmol/L (3.5-5.1); SGOT/AST 18 IU/L (3-35); SGPT/ALT 21 U/L (12-78); SODIUM 137 mmol/L (136-145); TOTAL PROTEIN 8.2 gm/dL (6.4-8.2)
[2018-12-10 17:33] LABS: TROPONIN I < 0.015 ng/ml (<0.045)
--- NOTE | 2018-12-10 18:56 | NUR ---
PT STATES THAT NAUSEA MEDICINE HAS HELPED ALOT,SHE IS FEELING BETTER.
[2018-12-10 19:41] LABS: BILIRUBIN 1+ (NEGATIVE); BLOOD 2+ (NEGATIVE); CLARITY CLOUDY (CLEAR); COLOR YELLOW (YELLOW); GLUCOSE NEGATIVE (NEGATIVE); KETONE NEGATIVE (NEGATIVE); LEUKO ESTERASE 3+ (NEGATIVE); NITRITE NEGATIVE (NEGATIVE); PH 5.5 (5.0-9.0); UROBILINOGEN 0.2 E.U./dl (0.2-1.0)
[2018-12-10 19:55] LABS: WBC TNTC wbc/hpf (0-5)
[2018-12-10] MEDS ORDERED: PAROXETINE HCL40 MG PO (21:36)
[2018-12-10] MEDS ORDERED: NOVAPLUS TACROLI1 MG PO (21:36)
[2018-12-10] MEDS ORDERED: LOSARTAN POTASS25 M1 PO (21:36)
[2018-12-10] MEDS ORDERED: ALLOPURINOL100 MG PO (21:36)
[2018-12-10] MEDS ORDERED: LABETALOL HCL300 MG PO (21:37)
--- NOTE | 2018-12-10 22:00 | NUR ---
A 53, admitted to , under the services of ANJALI Don DO with a diagnosis of COMPLICATED UTI. Chief complaint is NAUSEA,SHORTNESS BREATHE, PALPITATIONS TODAY. Patient arrived via bed from ER. Monitor applied. Initial assessment completed. Vital signs taken and recorded. ANJALI DON DO notified of admission to the unit. Orders received. See assessment for past medical history, medications and allergies. Patient and/or family oriented to unit. [address] visitation policy reviewed. Clothing/patient valuable form completed. DIPAK CORONA R
[2018-12-10] MEDS ORDERED: NORVASC10 MG PO (22:29)
[2018-12-10] MEDS ORDERED: ZANTAC 150150 MG PO (22:30)
[2018-12-10] MEDS ORDERED: CLARITIN10 MG PO (22:30)
[2018-12-10] MEDS ORDERED: PREDNISONE10 MG PO (22:31)
[2018-12-10] MEDS ORDERED: LEVOXYL137 MCG PO (22:31)
[2018-12-10] MEDS ORDERED: LASIX40 MG PO (22:32)
[2018-12-10] MEDS ORDERED: SODIUM BICARBO650 MG PO (22:35)
[2018-12-10] MEDS ORDERED: MULTIVITAMINS1 EAC5 PO (22:35)
[2018-12-10] MEDS ORDERED: VITAMIN D5000 UNIT PO (22:36)
[2018-12-10] MEDS ORDERED: MAGNESIUM OXID400 MG PO (22:37)
--- NOTE | 2018-12-10 23:35 | NUR ---
ASSUME CARE OF PATIENT. MEDICATED WITH PRN TYLENOL AND RESTORIL ORDERED FOR C/O BODY ACHES AND INSOMNIA.
[2018-12-11 06:19] LABS: BASO # 0.1 10*3/uL (0.0-0.1); BASO % 0.8 % (0.0-1.0); EOS # 0.2 10*3/uL (0.0-0.4); EOS % 2.1 % (1.0-4.0); HEMATOCRIT 46.1 % (37.0-47.0); HEMOGLOBIN 14.2 g/dl (12.0-16.0); LYMPH % 9.9 % (27.0-41.0); MEAN CELL VOLUME 97.3 fl (81.0-99.0); MEAN CORPUSCULAR HGB CONC 30.8 g/dl (33.0-37.0); MONO # 0.9 10*3/uL (0.1-1.0); MONO % 9.2 % (3.0-9.0); NEUT # 7.8 10*3/uL (2.3-7.9); NEUT % 77.5 % (47.0-73.0); PLATELET COUNT AUTOMATED 283 10*3/uL (130-400); RED BLOOD COUNT 4.74 10*6/uL (4.10-5.10); RED CELL DISTRI WIDTH 14.8 % (0-14.5); WHITE BLOOD COUNT 10.1 10*3/uL (4.8-10.8)
--- NOTE | 2018-12-11 06:20 | NUR ---
ANSWERING SERVICE WAS NOTIFIED OF DR. JUSTIN JENKINS. RESPONSE OF NOTIFICATION WAS OKAY I GOT YOUR MESSAGE. HERMAN CONNOLLY
--- NOTE | 2018-12-11 06:45 | NUR ---
PATIENT MEDICATED WITH PRN TYLENOL ORDERED FOR C/O FULL BODY ACHES RATED 8/10
[2018-12-11 06:55] LABS: CREATININE 1.55 mg/dL (0.55-1.02); FREE T4 1.06 ng/dl (0.76-1.46); PHOSPHOROUS 3.3 mg/dL (2.5-4.9); POTASSIUM 3.8 mmol/L (3.5-5.1)
[2018-12-11 07:03] LABS: THYROID STIM HORMONE (HS) 3.09 uIU/ml (0.358-4.75)
[2018-12-11 08:48] VITALS: BP 142/72
[2018-12-11 11:15] VITALS: BP 122/68
[2018-12-11 15:53] VITALS: BP 124/72
[2018-12-11 20:00] VITALS: BP 122/68; BP 128/60
--- NOTE | 2018-12-11 22:30 | NUR ---
IV IN RIGHT HAND INFILTRATED. IV REMOVED.
--- NOTE | 2018-12-11 22:50 | NUR ---
IV started right forearm with #22 protective cath after 1 attempts. Site prepped with Chloroprep. Sterile dressing applied. Patient tolerated procedure well. BILL MAIER
[2018-12-12] VITALS: BP 123/63
[2018-12-12 06:09] LABS: BASO % 0.3 % (0.0-1.0); EOS % 0.1 % (1.0-4.0); HEMATOCRIT 44.4 % (37.0-47.0); HEMOGLOBIN 13.9 g/dl (12.0-16.0); LYMPH # 0.9 10*3/uL (1.3-4.4); LYMPH % 8.8 % (27.0-41.0); MEAN CELL VOLUME 95.9 fl (81.0-99.0); MEAN CORPUSCULAR HGB CONC 31.3 g/dl (33.0-37.0); MEAN PLATELET VOLUME 9.8 fl (9.6-12.3); MONO # 0.6 10*3/uL (0.1-1.0); MONO % 5.7 % (3.0-9.0); NEUT % 84.6 % (47.0-73.0); PLATELET COUNT AUTOMATED 273 10*3/uL (130-400); RED BLOOD COUNT 4.63 10*6/uL (4.10-5.10); RED CELL DISTRI WIDTH 14.6 % (0-14.5); WHITE BLOOD COUNT 10.6 10*3/uL (4.8-10.8)
[2018-12-12 06:23] LABS: CREATININE 1.48 mg/dL (0.55-1.02); POTASSIUM 4.3 mmol/L (3.5-5.1)
[2018-12-12 08:00] VITALS: BP 136/62
[2018-12-12 12:00] VITALS: BP 147/73
[2018-12-12 16:00] VITALS: BP 111/84
[2018-12-12 20:00] VITALS: BP 134/64
--- NOTE | 2018-12-12 20:05 | NUR ---
PATIENT AWAKE AND ALERT SITTING IN BED TALKING WITH FAMILY. PATIENT STATES THAT SHE IS FEELING BETTER TODAY BUT SHE IS JUST REALLY TIRED. NO OTHER COMPLAINTS AT THIS TIME. WILL MONITOR.
[2018-12-13] VITALS: BP 148/78
[2018-12-13 08:00] VITALS: BP 155/74; BP 160/78
--- NOTE | 2018-12-13 09:00 | NUR ---
Footwear Sales Coordinator in to talk to patient. Patient states lives at home with alone. There are few steps in the home. Physician: lester jones [facility]acy[facility] [place] health services: none Patient's level of ADLs: INDEPENDENT Patient has working utilities: all working DME: none Follow-up physician's appointment after d/c: will be made by hospitalist nurse director upon discharge Does patient want to access PORTAL?: no Discharge plan discussed with patient, patient lives at home. is independent in adls and ambulation works, drives, patient states she will be going home when able and denies any home needs. TONG AN
[2018-12-13] MEDS ORDERED: PREDNISONE10 MG PO (10:20)
[2018-12-13] MEDS ORDERED: AMINOPHYLLIN200 MG PO (10:20)
[2018-12-13 12:00] VITALS: BP 138/69
--- NOTE | 2018-12-13 12:49 | NUR ---
Discharge instructions reviewed with patient/family. Patient receptive and verbalizes understanding. Follow-up care arranged. Written instructions given to patient/family. ARNIE SUAZO
== END 2018-12-13 12:45 | disposition home or self-care (01) | DRG 872 ==
LOC: ED 16:46 → 4E 21:42 → EDHOLD 21:42 → 4E 21:52
PROVIDERS: Emergency Medicine; Family Medicine; Student in an Organized Health Care Education/Training Program; ADMIT Internal Medicine
DX: A41.9 Sepsis, unspecified organism (principal); N39.0 Urinary tract infection, site not specified; N17.9 Acute kidney failure, unspecified; Z94.0 Kidney transplant status; R00.2 Palpitations; E83.42 Hypomagnesemia; E86.0 Dehydration; R73.9 Hyperglycemia, unspecified; F41.9 Anxiety disorder, unspecified; R11.2 Nausea with vomiting, unspecified; E78.5 Hyperlipidemia, unspecified; N28.1 Cyst of kidney, acquired; N18.9 Chronic kidney disease, unspecified; I10 Essential (primary) hypertension; E03.9 Hypothyroidism, unspecified; B96.20 Unspecified Escherichia coli [E. coli] as the cause of diseases classified elsewhere; K21.9 Gastro-esophageal reflux disease without esophagitis; J45.909 Unspecified asthma, uncomplicated; Z91.09 Other allergy status, other than to drugs and biological substances; Z98.51 Tubal ligation status; Z98.891 History of uterine scar from previous surgery; Z82.5 Family history of asthma and other chronic lower respiratory diseases; Z82.3 Family history of stroke; Z82.49 Family history of ischemic heart disease and other diseases of the circulatory system; Z80.1 Family history of malignant neoplasm of trachea, bronchus and lung; Z82.1 Family history of blindness and visual loss; Z79.899 Other long term (current) drug therapy; Z79.890 Hormone replacement therapy

== ENCOUNTER → 2019-02-11 | Outpatient (CLI) | payer MEDICARE ==
[~2019-02-11] MED LIST changes: +ALLOPURINOL100 MG PO; +AMINOPHYLLIN200 MG PO; +CLARITIN10 MG PO; +LABETALOL HCL300 MG PO; +LASIX40 MG PO; +LEVOXYL137 MCG PO; +LOSARTAN POTASS25 M1 PO; +MAGNESIUM OXID400 MG PO; +MULTIVITAMINS1 EAC5 PO; +NORVASC10 MG PO; +NOVAPLUS TACROLI1 MG PO; +PAROXETINE HCL40 MG PO; +SODIUM BICARBO650 MG PO; +VITAMIN D400 I1 PO
[2019-02-11 12:10] LABS: BILIRUBIN NEGATIVE (NEGATIVE); BLOOD NEGATIVE (NEGATIVE); CLARITY SL CLOUDY (CLEAR); COLOR YELLOW (YELLOW); GLUCOSE NEGATIVE (NEGATIVE); KETONE NEGATIVE (NEGATIVE); LEUKO ESTERASE TRACE (NEGATIVE); NITRITE NEGATIVE (NEGATIVE); UROBILINOGEN 0.2 E.U./dl (0.2-1.0)
[2019-02-11 12:11] LABS: BASO # 0.1 10*3/uL (0.0-0.1); BASO % 0.9 % (0.0-1.0); EOS # 0.6 10*3/uL (0.0-0.4); EOS % 9.1 % (1.0-4.0); HEMATOCRIT 52.8 % (37.0-47.0); HEMOGLOBIN 16.3 g/dl (12.0-16.0); LYMPH # 1.1 10*3/uL (1.3-4.4); LYMPH % 15.5 % (27.0-41.0); MEAN CELL VOLUME 95.8 fl (81.0-99.0); MEAN CORPUSCULAR HGB 29.6 pg (27.0-31.0); MEAN CORPUSCULAR HGB CONC 30.9 g/dl (33.0-37.0); MONO # 0.7 10*3/uL (0.1-1.0); MONO % 9.8 % (3.0-9.0); NEUT # 4.5 10*3/uL (2.3-7.9); NEUT % 64.3 % (47.0-73.0); PLATELET COUNT AUTOMATED 270 10*3/uL (130-400); RED BLOOD COUNT 5.51 10*6/uL (4.10-5.10); RED CELL DISTRI WIDTH 15.7 % (0-14.5)
[2019-02-11 12:41] LABS: BACTERIA 2+; EPITHELIAL CELLS 20-30
[2019-02-11 12:42] LABS: ALBUMIN 3.5 gm/dl (3.1-4.5); CREATININE 1.53 mg/dL (0.55-1.02); PHOSPHOROUS 2.7 mg/dL (2.5-4.9); POTASSIUM 3.2 mmol/L (3.5-5.1); URIC ACID 6.8 mg/dL (2.6-6.0)
[2019-02-11 13:04] LABS: VITAMIN D, 25-HYDROXY 17.8 ng/mL (30-100)
[2019-02-11 13:05] LABS: PTH INTACT 82.4 pg/mL (18.5-88.0)
== END | disposition home or self-care (01) ==
LOC: LAB 10:59
PROVIDERS: Internal Medicine Nephrology
DX: N25.81 Secondary hyperparathyroidism of renal origin (principal); Z94.0 Kidney transplant status

== ENCOUNTER 2019-03-17 20:41 | Inpatient (IN) | payer MEDICARE, MEDICAID ==
[~2019-03-17] VITALS: Ht 160 cm; Wt 112.3 kg
[~2019-03-17 20:41] MED LIST changes: -VITAMIN D400 I1 PO; +VITAMIN D5000 UNIT PO
[2019-03-17 20:43] VITALS: BP 152/72
[2019-03-17 21:28] LABS: HEMATOCRIT 49.4 % (37.0-47.0); HEMOGLOBIN 15.3 g/dl (12.0-16.0); MEAN CELL VOLUME 95.9 fl (81.0-99.0); MEAN CORPUSCULAR HGB 29.7 pg (27.0-31.0); PLATELET COUNT AUTOMATED 210 10*3/uL (130-400); RED BLOOD COUNT 5.15 10*6/uL (4.10-5.10); RED CELL DISTRI WIDTH 15.9 % (0-14.5); WHITE BLOOD COUNT 19.4 10*3/uL (4.8-10.8)
[2019-03-17 21:39] LABS: ACT PARTIAL THROMBO TIME 27.3 SECONDS (20.0-32.1)
[2019-03-17 21:47] LABS: PLATELET SUFFICIENCY NORMAL (NORMAL); TOTAL CELLS COUNTED 100 #CELLS
[2019-03-17 21:49] LABS: ALBUMIN 3.4 gm/dl (3.1-4.5); ALKALINE PHOSPHATASE 91 U/L (45-117); BUN 26 mg/dl (7-24); CHLORIDE 107 mmol/L (98-107); CREATININE 1.93 mg/dL (0.55-1.02); LIPASE 44 U/L (73-393); POTASSIUM 4.5 mmol/L (3.5-5.1); SGOT/AST 14 IU/L (3-35); SGPT/ALT 14 U/L (12-78); SODIUM 133 mmol/L (136-145); TOTAL PROTEIN 7.2 gm/dL (6.4-8.2)
[2019-03-17 21:53] LABS: TROPONIN I < 0.015 ng/ml (<0.045)
--- NOTE | 2019-03-17 22:46 | NUR ---
PT RESTING IN BED WITH LIGHTS DIMMED.BLANKETS PROVIDED.INFUSION OF NS CONTINUES.PT DENIES NAUSEA AT THIS TIME.
[2019-03-17 22:56] LABS: BILIRUBIN NEGATIVE (NEGATIVE); BLOOD 3+ (NEGATIVE); CLARITY CLOUDY (CLEAR); COLOR YELLOW (YELLOW); GLUCOSE NEGATIVE (NEGATIVE); KETONE NEGATIVE (NEGATIVE); LEUKO ESTERASE 2+ (NEGATIVE); NITRITE POSITIVE (NEGATIVE); PH 5.5 (5.0-9.0); UROBILINOGEN 0.2 E.U./dl (0.2-1.0)
[2019-03-17 23:09] LABS: BACTERIA 3+; RBC TNTC rbc/hpf (0-2); WBC TNTC wbc/hpf (0-5)
--- NOTE | 2019-03-17 23:21 | NUR ---
SECOND LITER NS INITIATED.PT UPDATED ON LAB RESULTS.
[2019-03-18 00:14] VITALS: BP 152/78
--- NOTE | 2019-03-18 00:21 | NUR ---
PT ACTIVELY VOMITING.MD KEENAN NOTIFIED.
--- NOTE | 2019-03-18 00:23 | NUR ---
DR JACK NOTIFIED OF PT VOMITING.
--- NOTE | 2019-03-18 00:33 | NUR ---
PT MEDICATED 12.5MG PHENERGAN IM PER MD KEENAN.
[2019-03-18 00:40] VITALS: BP 173/95
--- NOTE | 2019-03-18 00:40 | NUR ---
A 53, admitted to 5E, under the services of ANJALI Don DO with a diagnosis of UTI, SEPSIS. Chief complaint is NAUSEA AND VOMITING. Patient arrived via ambulatory from ER. Monitor applied. Initial assessment completed. Vital signs taken and recorded. ANJALI DON DO notified of admission to the unit. Orders received. See assessment for past medical history, medications and allergies. Patient and/or family oriented to unit. visitation policy reviewed. Clothing/patient valuable form completed. TRICE KULKARNI
--- NOTE | 2019-03-18 06:15 | NUR ---
SPOKE WITH DHRUV AT DR. ANDERSON'S ANSWERING SERVICE TO INFORM OF CONSULT FOR HISTORY OF KIDNEY TRANSPLANT AND PATIENT KNOWN TO HIM.
[2019-03-18 06:31] LABS: CREATININE 1.74 mg/dL (0.55-1.02); POTASSIUM 4.3 mmol/L (3.5-5.1)
[2019-03-18 08:58] LABS: HEMATOCRIT 44.4 % (37.0-47.0); HEMOGLOBIN 13.9 g/dl (12.0-16.0); MEAN CELL VOLUME 95.3 fl (81.0-99.0); MEAN CORPUSCULAR HGB 29.8 pg (27.0-31.0); MEAN CORPUSCULAR HGB CONC 31.3 g/dl (33.0-37.0); MEAN PLATELET VOLUME 10.4 fl (9.6-12.3); PLATELET COUNT AUTOMATED 197 10*3/uL (130-400); RED BLOOD COUNT 4.66 10*6/uL (4.10-5.10); RED CELL DISTRI WIDTH 16.1 % (0-14.5); WHITE BLOOD COUNT 15.4 10*3/uL (4.8-10.8)
[2019-03-18 09:21] LABS: PLATELET SUFFICIENCY NORMAL (NORMAL); TOTAL CELLS COUNTED 100 #CELLS
--- NOTE | 2019-03-18 09:29 | NUR ---
CONSULT CALLED TO DR QUIÑONEZ'S OFFICE.
--- NOTE | 2019-03-18 09:59 | NUR ---
PATIENT COMPLAINED OF HEADACHE AT AN 8/10. PATIENT STATED IT WAS A THROBBING PAIN. PATIENT REQUESTED NORCO. WILL ASSESS FOR EFFECTIVENESS.
--- NOTE | 2019-03-18 10:46 | NUR ---
PATIENT STATED NORCO WAS EFFECTIVE. PATIENT COMPLAINED OF FEELING NAUSEOUS. ZOFRAN GIVEN. WILL ASSESS FOR EFFECTIVENESS.
--- NOTE | 2019-03-18 10:58 | NUR ---
Storage Manager in to talk to patient. Patient states lives at HOME with ALONE. There are NO steps in the home. Physician: HERMELINDA MONSON [facility] [place] health services: NONE Patient's level of ADLs: INDEPENDENT Patient has working utilities: YES DME: NONE Follow-up physician's appointment after d/c: WILL BE MADE BY HOSPITALIST NURSE DIRECTOR ON DISCHARGE Does patient want to access PORTAL?: NO Discharge plan PT LIVES AT HOME ALONE AND IS INDEPENDENT IN HER CARE. PLANS TO RETURN HOME ON DISCHARGE AND STATES SHE WILL HAVE NO NEEDS. WILL CONTINUE TO FOLLOW. PT STATES HER CAR IS IN ER AND SHE WILL DRIVE HERSELF HOME. . GAY MAIER
[2019-03-18 12:00] VITALS: BP 103/55
[2019-03-18 16:00] VITALS: BP 125/52
--- NOTE | 2019-03-18 19:03 | NUR ---
24 HR chart check completed.
[2019-03-18 20:00] VITALS: BP 120/56
--- NOTE | 2019-03-18 20:25 | NUR ---
PRN NORCO GIVEN FOR A GENERALIZED PAIN OF 7/10. WILL REASSESS EFFECTIVENESS OF MEDICATION.
--- NOTE | 2019-03-18 21:30 | NUR ---
PRN NORCO WAS EFFECTIVE. PT IS RESTING COMFORTABLY IN BED WITH NO SIGNS OF DISTRESS.
[2019-03-19] VITALS: BP 110/54
--- NOTE | 2019-03-19 | NUR ---
ASSESSED PT'S FISTULA. THRILL WAS PRESENT AND THE BRUIT WAS FAINTLY PRESENT.
[2019-03-19 06:16] LABS: CREATININE 1.86 mg/dL (0.55-1.02); POTASSIUM 4.3 mmol/L (3.5-5.1)
[2019-03-19 06:20] LABS: BASO % 0.2 % (0.0-1.0); EOS # 0.1 10*3/uL (0.0-0.4); EOS % 0.5 % (1.0-4.0); HEMATOCRIT 45.3 % (37.0-47.0); HEMOGLOBIN 13.9 g/dl (12.0-16.0); LYMPH # 0.4 10*3/uL (1.3-4.4); LYMPH % 3.2 % (27.0-41.0); MEAN CORPUSCULAR HGB 29.8 pg (27.0-31.0); MEAN CORPUSCULAR HGB CONC 30.7 g/dl (33.0-37.0); MONO # 0.8 10*3/uL (0.1-1.0); MONO % 6.3 % (3.0-9.0); NEUT # 11.1 10*3/uL (2.3-7.9); NEUT % 89.4 % (47.0-73.0); PLATELET COUNT AUTOMATED 210 10*3/uL (130-400); RED BLOOD COUNT 4.67 10*6/uL (4.10-5.10); RED CELL DISTRI WIDTH 16.4 % (0-14.5); WHITE BLOOD COUNT 12.4 10*3/uL (4.8-10.8)
--- NOTE | 2019-03-19 07:46 | NUR ---
ID NOTE REVIEWED, Shift chart check completed.
[2019-03-19 08:00] VITALS: BP 142/65
--- NOTE | 2019-03-19 09:43 | NUR ---
IV started right hand with #22 protective cath after 1 attempts. Site prepped with Chloroprep. Sterile dressing applied. Patient tolerated procedure well. IV TO RIGHT HAND PULLED OUT AFTER CATCHING ON ABDIEL RUIZ
--- NOTE | 2019-03-19 11:51 | NUR ---
ASSUMED CARE FOR THIS PT AT THIS TIME. PT RESTING QUIETLY IN BED. PT MEDICATED W/NORCO FOR C/O FRONTAL H/A 02/19. PT DENIES N/V. PT STATES SHE DID HAVE ONE BOUT OF DIARRHEA TODAY AND CONTINUES TO HAVE ABD TENDERNESS. BSX4 NORMO. CALL LIGHT IN REACH.
[2019-03-19 12:00] VITALS: BP 129/76
[2019-03-19 16:00] VITALS: BP 120/70
[2019-03-19 20:00] VITALS: BP 128/65
[2019-03-20] VITALS: BP 147/77
--- NOTE | 2019-03-20 01:39 | NUR ---
24. HR. CHART CHECK COMPLETE.
[2019-03-20 06:18] LABS: BASO % 0.3 % (0.0-1.0); EOS # 0.1 10*3/uL (0.0-0.4); EOS % 1.9 % (1.0-4.0); HEMATOCRIT 42.4 % (37.0-47.0); HEMOGLOBIN 12.8 g/dl (12.0-16.0); LYMPH # 0.4 10*3/uL (1.3-4.4); LYMPH % 5.9 % (27.0-41.0); MEAN CELL VOLUME 97.2 fl (81.0-99.0); MEAN CORPUSCULAR HGB 29.4 pg (27.0-31.0); MEAN CORPUSCULAR HGB CONC 30.2 g/dl (33.0-37.0); MEAN PLATELET VOLUME 10.4 fl (9.6-12.3); MONO # 0.5 10*3/uL (0.1-1.0); MONO % 7.1 % (3.0-9.0); NEUT # 6.1 10*3/uL (2.3-7.9); NEUT % 84.4 % (47.0-73.0); PLATELET COUNT AUTOMATED 186 10*3/uL (130-400); RED BLOOD COUNT 4.36 10*6/uL (4.10-5.10); WHITE BLOOD COUNT 7.3 10*3/uL (4.8-10.8)
[2019-03-20 06:49] LABS: ALBUMIN 2.4 gm/dl (3.1-4.5); CREATININE 1.7 mg/dL (0.55-1.02); POTASSIUM 3.9 mmol/L (3.5-5.1)
[2019-03-20 06:50] LABS: TOTAL PROTEIN 5.9 gm/dL (6.4-8.2)
[2019-03-20 08:00] VITALS: BP 146/62
[2019-03-20] MEDS ORDERED: VITAMIN D32000 UNI1 PO (10:04)
[2019-03-20] MEDS ORDERED: CEPHALEXIN500 M1 PO (10:06)
--- NOTE | 2019-03-20 11:22 | NUR ---
PT DISCHARGED AT THIS TIME. IV REMOVED AND PRESSURE DRESSING APPLIED. VERBALIZED UNDERSTANDING OF DISCHARGE INSTRUCTIONS.
== END 2019-03-20 11:18 | disposition home or self-care (01) | DRG 871 ==
LOC: ED 20:41 → 5E 23:49 → EDHOLD 23:49 → 5E 23:57
PROVIDERS: Emergency Medicine Emergency Medical Services; Family Medicine; Internal Medicine; Student in an Organized Health Care Education/Training Program; ADMIT Internal Medicine
DX: A41.9 Sepsis, unspecified organism (principal); N17.0 Acute kidney failure with tubular necrosis; E43 Unspecified severe protein-calorie malnutrition; Z94.0 Kidney transplant status; Z68.41 Body mass index [BMI] 40.0-44.9, adult; R65.20 Severe sepsis without septic shock; M10.9 Gout, unspecified; R11.2 Nausea with vomiting, unspecified; R73.9 Hyperglycemia, unspecified; I10 Essential (primary) hypertension; N30.90 Cystitis, unspecified without hematuria; E03.9 Hypothyroidism, unspecified; B96.20 Unspecified Escherichia coli [E. coli] as the cause of diseases classified elsewhere; K21.9 Gastro-esophageal reflux disease without esophagitis; F32.9 Major depressive disorder, single episode, unspecified; Z91.09 Other allergy status, other than to drugs and biological substances; Z87.440 Personal history of urinary (tract) infections; Z98.891 History of uterine scar from previous surgery; Z98.51 Tubal ligation status; Z80.1 Family history of malignant neoplasm of trachea, bronchus and lung; Z83.3 Family history of diabetes mellitus; Z82.49 Family history of ischemic heart disease and other diseases of the circulatory system; Z82.5 Family history of asthma and other chronic lower respiratory diseases; Z82.3 Family history of stroke; Z82.1 Family history of blindness and visual loss; Z79.899 Other long term (current) drug therapy; Z79.52 Long term (current) use of systemic steroids; Z79.890 Hormone replacement therapy

== ENCOUNTER 2019-05-22 02:33 | Inpatient (IN) | payer MEDICARE ==
[~2019-05-22] VITALS: Ht 160 cm; Wt 109.5 kg
[2019-05-22] VITALS (7 sets, daily range): BP systolic 115–159; BP diastolic 52–80
[~2019-05-22 02:33] MED LIST changes: +CEPHALEXIN500 M1 PO; +VITAMIN D32000 UNI1 PO
[2019-05-22 03:12] LABS: BILIRUBIN NEGATIVE (NEGATIVE); BLOOD 3+ (NEGATIVE); CLARITY SL CLOUDY (CLEAR); COLOR YELLOW (YELLOW); GLUCOSE NEGATIVE (NEGATIVE); KETONE NEGATIVE (NEGATIVE); LEUKO ESTERASE 2+ (NEGATIVE); NITRITE NEGATIVE (NEGATIVE); UROBILINOGEN 0.2 E.U./dl (0.2-1.0)
[2019-05-22 03:18] LABS: RBC 21-30 rbc/hpf (0-2); WBC TNTC wbc/hpf (0-5)
[2019-05-22 03:19] LABS: BACTERIA 1+
[2019-05-22 03:27] LABS: HEMATOCRIT 42.7 % (37.0-47.0); HEMOGLOBIN 13.2 g/dl (12.0-16.0); MEAN CELL VOLUME 95.3 fl (81.0-99.0); MEAN CORPUSCULAR HGB 29.5 pg (27.0-31.0); MEAN CORPUSCULAR HGB CONC 30.9 g/dl (33.0-37.0); MEAN PLATELET VOLUME 9.2 fl (9.6-12.3); PLATELET COUNT AUTOMATED 349 10*3/uL (130-400); RED BLOOD COUNT 4.48 10*6/uL (4.10-5.10); RED CELL DISTRI WIDTH 16.5 % (0-14.5); WHITE BLOOD COUNT 25.4 10*3/uL (4.8-10.8)
--- NOTE | 2019-05-22 03:28 | NUR ---
PT STATES THAT SHE IS FEELING IMPROVED WITH THE ZOFRAN. LAYING IN BED WITH EMESIS BAG. BED IN LOW POSITION. CALL SOLITARIO WITHIN REACH. MEDICATED WITH DILAUDID.
[2019-05-22 03:44] LABS: ALBUMIN 2.9 gm/dl (3.1-4.5); ALKALINE PHOSPHATASE 84 U/L (45-117); BUN 22 mg/dl (7-24); CHLORIDE 107 mmol/L (98-107); CREATININE 2.06 mg/dL (0.55-1.02); LIPASE 37 U/L (73-393); POTASSIUM 3.9 mmol/L (3.5-5.1); SGOT/AST 14 IU/L (3-35); SGPT/ALT 19 U/L (12-78); SODIUM 136 mmol/L (136-145); TOTAL PROTEIN 6.6 gm/dL (6.4-8.2); TROPONIN I < 0.015 ng/ml (<0.045)
[2019-05-22 03:46] LABS: ACT PARTIAL THROMBO TIME 32.3 SECONDS (20.0-32.1)
[2019-05-22 03:49] LABS: ATYPICAL LYMPHS 1 % (0-0); PLATELET SUFFICIENCY NORMAL (NORMAL); TOTAL CELLS COUNTED 100 #CELLS
--- NOTE | 2019-05-22 03:55 | NUR ---
PT STATES THAT THE DILAUDID DID IMPROVE HER BACK PAIN.
--- NOTE | 2019-05-22 04:23 | NUR ---
PT PLACED ON 2L NC DUE TO PULSE OX DROOPING TO LOW 90s. PT IS RESTING IN BED WITH LIGHTS OFF FOR COMFORT. BED IS IN LOW POSITION. ZOSYN AND 1L OF FLUIDS COMPLETE. CALL SOLITARIO WITHIN REACH. PT APPEARS MORE COMFORTABLE AT THIS TIME. WILL CONTINUE TO MONITOR.
--- NOTE | 2019-05-22 05:00 | NUR ---
A 53, admitted to , under the services of ANJALI Don DO with a diagnosis of SEPSIS,UTI,HX KIDNEY TRANSPLANT, HX OF POLYCYSTIC DISEASE. Chief complaint is NAUSEA/VOMITING\. Patient arrived via bed from ER. Monitor applied. Initial assessment completed. Vital signs taken and recorded. ANJALI DON DO notified of admission to the unit. Orders received. See assessment for past medical history, medications and allergies. Patient and/or family oriented to unit. [facility] visitation policy reviewed. Clothing/patient valuable form completed. BILL BONDS
--- NOTE | 2019-05-22 06:00 | NUR ---
PT MED REC UPDATED PER PT.
--- NOTE | 2019-05-22 06:00 | NUR ---
PT GIVEN NORCO AT THIS TIME FOR C/O HEADACHE AND BODY ACHES. WILL MONITOR FOR EFFECTIVENESS. CALL LIGHT IN REACH.
--- NOTE | 2019-05-22 06:45 | NUR ---
CONSULT CALLED TO DR ANDERSON ANSWERING SERVICE AT THIS TIME.
--- NOTE | 2019-05-22 06:46 | NUR ---
CONSULT CALLED TO DR QUIÑONEZ/INFECTIOUS DISEASE ANSWERING SERVICE AT THIS TIME.
--- NOTE | 2019-05-22 06:52 | NUR ---
JANE EFFECTIVE PER PT.
[2019-05-22 06:54] LABS: HEMATOCRIT 38.9 % (37.0-47.0); HEMOGLOBIN 12.1 g/dl (12.0-16.0); MEAN CELL VOLUME 96.5 fl (81.0-99.0); MEAN CORPUSCULAR HGB CONC 31.1 g/dl (33.0-37.0); MEAN PLATELET VOLUME 9.6 fl (9.6-12.3); PLATELET COUNT AUTOMATED 309 10*3/uL (130-400); RED BLOOD COUNT 4.03 10*6/uL (4.10-5.10); RED CELL DISTRI WIDTH 16.6 % (0-14.5); WHITE BLOOD COUNT 22.7 10*3/uL (4.8-10.8)
[2019-05-22 06:55] LABS: ALBUMIN 2.5 gm/dl (3.1-4.5); CREATININE 2.06 mg/dL (0.55-1.02); POTASSIUM 3.9 mmol/L (3.5-5.1)
[2019-05-22 06:56] LABS: FREE T4 0.88 ng/dl (0.76-1.46)
[2019-05-22 07:03] LABS: THYROID STIM HORMONE (HS) 3.04 uIU/ml (0.358-4.75)
[2019-05-22 07:20] LABS: PLATELET SUFFICIENCY NORMAL (NORMAL); TOTAL CELLS COUNTED 100 #CELLS
--- NOTE | 2019-05-22 08:17 | NUR ---
IN TO SEE PATIENT.
[2019-05-22 08:21] LABS: VITAMIN D, 25-HYDROXY 28.2 ng/mL (30-100)
--- NOTE | 2019-05-22 09:52 | NUR ---
PT MEDICATED WITH IV ZOFRAN PER PRN ORDER FOR C/O NAUSEA. EMESIS X1. WILL MONITOR EFFECTIVENESS.
--- NOTE | 2019-05-22 11:00 | NUR ---
CHANDANAN EFFECTIVE AT THIS TIME. WILL CONTINUE TO MONITOR. IVF MAINTAINED PER ORDER.
--- NOTE | 2019-05-22 15:19 | NUR ---
PT GIVEN PO NORCO PER PRN ORDER FOR C/O BODY ACHES. RATES PAIN 02/19. WILL MONITOR EFFECTIVENESS.
--- NOTE | 2019-05-22 15:52 | NUR ---
OCTOBER FROM ID HERE AND NOTIFIED REGARDING POSITIVE BLOOD CULTURE.
--- NOTE | 2019-05-22 16:32 | NUR ---
JANE EFFECTIVE PER PT.
[2019-05-23] VITALS: BP 143/54
--- NOTE | 2019-05-23 00:44 | NUR ---
EARLIER MEDICATIONS EFFECTIVE. TEMP NOW 98.9 AND HR 80S PER CM. PT DENIES ANY NAUSEA/VOMITING WELL. WILL MONITOR. CALL LIGHT IN REACH.
[2019-05-23 06:30] VITALS: BP 127/58
--- NOTE | 2019-05-23 07:30 | NUR ---
Patient resting quietly with no c/o discomfort. Respirations easy and regular. Vital signs stable. No overt distress. EBONY SADLER
[2019-05-23 08:00] VITALS: BP 147/68
--- NOTE | 2019-05-23 08:04 | NUR ---
24 HR chart check completed.
--- NOTE | 2019-05-23 09:00 | NUR ---
MEDICATED WITH PO NORCO ORDERED PER PT REQUEST FOR C/O ALL OVER PAIN RATED 4/10.
[2019-05-23 10:14] LABS: BASO % 0.3 % (0.0-1.0); EOS # 0.1 10*3/uL (0.0-0.4); EOS % 1.2 % (1.0-4.0); LYMPH # 0.4 10*3/uL (1.3-4.4); LYMPH % 3.6 % (27.0-41.0); MEAN CELL VOLUME 97.6 fl (81.0-99.0); MEAN CORPUSCULAR HGB 29.8 pg (27.0-31.0); MEAN CORPUSCULAR HGB CONC 30.6 g/dl (33.0-37.0); MEAN PLATELET VOLUME 9.5 fl (9.6-12.3); MONO # 0.7 10*3/uL (0.1-1.0); MONO % 6.1 % (3.0-9.0); NEUT # 10.2 10*3/uL (2.3-7.9); PLATELET COUNT AUTOMATED 225 10*3/uL (130-400); RED BLOOD COUNT 3.69 10*6/uL (4.10-5.10); RED CELL DISTRI WIDTH 16.4 % (0-14.5); WHITE BLOOD COUNT 11.5 10*3/uL (4.8-10.8)
[2019-05-23 10:28] LABS: ALBUMIN 2.4 gm/dl (3.1-4.5); CREATININE 2.42 mg/dL (0.55-1.02); POTASSIUM 3.7 mmol/L (3.5-5.1)
[2019-05-23 10:29] LABS: PHOSPHOROUS 3.5 mg/dL (2.5-4.9)
--- NOTE | 2019-05-23 11:04 | NUR ---
Dr Kira montes for lab results.
[2019-05-23 12:00] VITALS: BP 164/70
--- NOTE | 2019-05-23 13:18 | NUR ---
Facility Maintenance Worker in to talk to patient. Patient states lives at HOME with ALONE. There are NO steps in the home. Physician: HERMELINDA MONSON [facility]: [facility] [place] health services: NONE Patient's level of ADLs: INDEPENDENT Patient has working utilities: YES DME: NONE Follow-up physician's appointment after d/c: WILL BE MADE BY HOSPITALIST NURSE DIRECTOR ON DISCHARGE Does patient want to access PORTAL?: NO Discharge plan PT LIVES AT HOME ALONE AND IS INDEPENDENT IN HER CARE. DENIES SHE WILL HAVE ANY NEEDS ON DISCHARGE. PLAN IS TO RETURN HOME WHEN MEDICALLY STABLE. WILL CONTINUE TO FOLLOW. STATES SHE WILL HAVE A RIDE HOME.. GAY MAIER
[2019-05-23 16:00] VITALS: BP 179/79
--- NOTE | 2019-05-23 17:50 | NUR ---
MEDICATED WITH PO NORCO ORDERED PER PT REQUEST FOR C/O ALL OVER ACHES RATED 4/10.
[2019-05-23 20:00] VITALS: BP 166/78
--- NOTE | 2019-05-23 20:56 | NUR ---
PO LABETOLOL GIVEN EARLY FOR ELEVATED BP 166/78 MANUALLY IN R ARM. HR 66 AT THIS TIME. WILL MONITOR EFFECTIVENESS. SPOKE TO PHARMACIST REGARDING IV ZOSYN SCHEDULED FOR 2200. 1600 DOSE OF ZOSYN JUST FINISHED INFUSING AT 2014. PHARMACY RECOMMENDS HOLDING 2200 DOSE AND GIVING 0400 DOSE. DISCUSSED THIS WITH . HE AGREES. WILL HOLD 2200 DOSE.
--- NOTE | 2019-05-23 23:42 | NUR ---
PT MEDICATED WITH PO NORCO PER PRN ORDER FOR C/O GEN BODY ACHES ALL OVER, ESPECIALLY IN LEGS. WILL MONITOR EFFECTIVENESS. CALL LIGHT IN REACH.
[2019-05-24] VITALS: BP 137/59
[2019-05-24 06:18] LABS: BASO % 0.1 % (0.0-1.0); EOS # 0.1 10*3/uL (0.0-0.4); EOS % 1.8 % (1.0-4.0); HEMATOCRIT 34.3 % (37.0-47.0); HEMOGLOBIN 10.4 g/dl (12.0-16.0); LYMPH # 0.6 10*3/uL (1.3-4.4); LYMPH % 9.4 % (27.0-41.0); MEAN CELL VOLUME 97.4 fl (81.0-99.0); MEAN CORPUSCULAR HGB 29.5 pg (27.0-31.0); MEAN CORPUSCULAR HGB CONC 30.3 g/dl (33.0-37.0); MEAN PLATELET VOLUME 9.9 fl (9.6-12.3); MONO # 0.5 10*3/uL (0.1-1.0); NEUT # 5.5 10*3/uL (2.3-7.9); NEUT % 80.3 % (47.0-73.0); PLATELET COUNT AUTOMATED 221 10*3/uL (130-400); RED BLOOD COUNT 3.52 10*6/uL (4.10-5.10); RED CELL DISTRI WIDTH 16.2 % (0-14.5); WHITE BLOOD COUNT 6.8 10*3/uL (4.8-10.8)
[2019-05-24 06:29] LABS: CREATININE 2.02 mg/dL (0.55-1.02); POTASSIUM 3.9 mmol/L (3.5-5.1)
--- NOTE | 2019-05-24 06:45 | NUR ---
NOTIFIED OF + BLOOD CULTURES FROM 05/22 COMING BACK E.COLI.
[2019-05-24 08:00] VITALS: BP 186/85
--- NOTE | 2019-05-24 09:00 | NUR ---
case management visits with patient, she states she will return home when medically stable and denies any home needs, case management will follow
--- NOTE | 2019-05-24 09:45 | NUR ---
MEDICATED WITH PRN PO NORCO FOR GENERALIZED BODY ACHES.
[2019-05-24 12:00] VITALS: BP 141/71
[2019-05-24] MEDS ORDERED: CEFDINIR300 MG PO (15:09)
--- NOTE | 2019-05-24 15:57 | NUR ---
Discharge instructions reviewed with patient/family. Patient receptive and verbalizes understanding. Follow-up care arranged. Written instructions given to patient/family. [facility]SP[facility] HOME BY PRIVATE VEHICLE. MARKO FRIEDMAN
== END 2019-05-24 15:57 | disposition home or self-care (01) | DRG 871 ==
LOC: ED 02:33 → EDHOLD 04:25 → 5E 04:25
PROVIDERS: Emergency Medicine Emergency Medical Services; Internal Medicine; Internal Medicine Nephrology; ADMIT Internal Medicine
DX: A41.51 Sepsis due to Escherichia coli [E. coli] (principal); N17.0 Acute kidney failure with tubular necrosis; E44.0 Moderate protein-calorie malnutrition; Q61.3 Polycystic kidney, unspecified; Z94.0 Kidney transplant status; Z68.41 Body mass index [BMI] 40.0-44.9, adult; N39.0 Urinary tract infection, site not specified; R65.20 Severe sepsis without septic shock; N18.9 Chronic kidney disease, unspecified; I12.9 Hypertensive chronic kidney disease with stage 1 through stage 4 chronic kidney disease, or unspecified chronic kidney disease; E03.9 Hypothyroidism, unspecified; K21.9 Gastro-esophageal reflux disease without esophagitis; M10.9 Gout, unspecified; F32.9 Major depressive disorder, single episode, unspecified; E55.9 Vitamin D deficiency, unspecified; E87.8 Other disorders of electrolyte and fluid balance, not elsewhere classified; D64.9 Anemia, unspecified

== ENCOUNTER → 2019-05-27 | Outpatient (CLI) | payer MEDICARE ==
[~2019-05-27] MED LIST changes: +CEFDINIR300 MG PO
[2019-05-27 14:03] LABS: BASO % 0.4 % (0.0-1.0); EOS % 0.4 % (1.0-4.0); HEMATOCRIT 39.3 % (37.0-47.0); HEMOGLOBIN 11.8 g/dl (12.0-16.0); LYMPH # 0.7 10*3/uL (1.3-4.4); LYMPH % 6.5 % (27.0-41.0); MEAN CELL VOLUME 96.6 fl (81.0-99.0); MEAN PLATELET VOLUME 9.8 fl (9.6-12.3); MONO # 0.5 10*3/uL (0.1-1.0); MONO % 4.6 % (3.0-9.0); NEUT # 9.1 10*3/uL (2.3-7.9); NEUT % 87.5 % (47.0-73.0); PLATELET COUNT AUTOMATED 357 10*3/uL (130-400); RED BLOOD COUNT 4.07 10*6/uL (4.10-5.10); WHITE BLOOD COUNT 10.4 10*3/uL (4.8-10.8)
[2019-05-27 14:31] LABS: CREATININE 2.03 mg/dL (0.55-1.02); POTASSIUM 4.8 mmol/L (3.5-5.1)
== END | disposition home or self-care (01) ==
LOC: LAB 13:20
PROVIDERS: Internal Medicine
DX: N17.0 Acute kidney failure with tubular necrosis (principal); D64.9 Anemia, unspecified

== ENCOUNTER → 2019-06-14 | Outpatient (CLI) | payer MEDICARE ==
[2019-06-14 11:04] LABS: BASO # 0.1 10*3/uL (0.0-0.1); BASO % 0.8 % (0.0-1.0); EOS # 0.2 10*3/uL (0.0-0.4); EOS % 2.8 % (1.0-4.0); HEMATOCRIT 42.5 % (37.0-47.0); HEMOGLOBIN 12.8 g/dl (12.0-16.0); LYMPH # 0.9 10*3/uL (1.3-4.4); LYMPH % 11.4 % (27.0-41.0); MEAN CELL VOLUME 99.8 fl (81.0-99.0); MEAN CORPUSCULAR HGB CONC 30.1 g/dl (33.0-37.0); MEAN PLATELET VOLUME 9.8 fl (9.6-12.3); MONO # 0.5 10*3/uL (0.1-1.0); MONO % 6.5 % (3.0-9.0); NEUT # 6.1 10*3/uL (2.3-7.9); NEUT % 77.9 % (47.0-73.0); PLATELET COUNT AUTOMATED 289 10*3/uL (130-400); RED BLOOD COUNT 4.26 10*6/uL (4.10-5.10); RED CELL DISTRI WIDTH 16.3 % (0-14.5); WHITE BLOOD COUNT 7.8 10*3/uL (4.8-10.8)
[2019-06-14 11:06] LABS: BILIRUBIN NEGATIVE (NEGATIVE); BLOOD NEGATIVE (NEGATIVE); CLARITY CLEAR (CLEAR); COLOR YELLOW (YELLOW); GLUCOSE NEGATIVE (NEGATIVE); KETONE NEGATIVE (NEGATIVE); LEUKO ESTERASE NEGATIVE (NEGATIVE); NITRITE NEGATIVE (NEGATIVE); PH 5.5 (5.0-9.0); SPECIFIC GRAVITY 1.015 (1.005-1.030); UROBILINOGEN 0.2 E.U./dl (0.2-1.0)
[2019-06-14 11:35] LABS: ALBUMIN 3.5 gm/dl (3.1-4.5); POTASSIUM 4.1 mmol/L (3.5-5.1)
[2019-06-14 11:38] LABS: CREATININE 1.96 mg/dL (0.55-1.02); PHOSPHOROUS 3.2 mg/dL (2.5-4.9); TOTAL PROTEIN 7.2 gm/dL (6.4-8.2); URIC ACID 5.6 mg/dL (2.6-6.0)
== END | disposition home or self-care (01) ==
LOC: LAB 10:15
PROVIDERS: Internal Medicine Nephrology
DX: Z94.0 Kidney transplant status (principal)

== ENCOUNTER → 2020-02-27 | Outpatient (CLI) | payer MEDICARE | END | disposition home or self-care (01) | LOC: MAMMO 13:00 | DX: Z12.31 Encounter for screening mammogram for malignant neoplasm of breast (principal) ==

== ENCOUNTER → 2020-04-02 | Outpatient (CLI) | payer MEDICARE ==
[2020-04-02 11:25] LABS: BILIRUBIN NEGATIVE; BLOOD NEGATIVE (NEGATIVE); CLARITY CLEAR (CLEAR); COLOR YELLOW (YELLOW); GLUCOSE NEGATIVE; KETONE NEGATIVE; LEUKO ESTERASE NEGATIVE (NEGATIVE); NITRITE NEGATIVE (NEGATIVE); PH 5.5 (4.5-8.0); SPECIFIC GRAVITY 1.015 (1.001-1.030); UROBILINOGEN 0.2 E.U./dl (0.0-1.0)
[2020-04-02 11:26] LABS: BACTERIA 2+; WBC 0-2 wbc/hpf (0-5)
[2020-04-02 11:27] LABS: MUCOUS TRACE
[2020-04-02 11:40] LABS: ALBUMIN 3.3 gm/dl (3.1-4.5); CREATININE 1.45 mg/dL (0.55-1.02); POTASSIUM 4.6 mmol/L (3.5-5.1); TOTAL PROTEIN 6.4 gm/dL (6.4-8.2); URIC ACID 4.7 mg/dL (2.6-6.0)
[2020-04-02 12:01] LABS: BASO # 0.1 10*3/uL (0.0-0.1); BASO % 0.6 % (0.0-1.0); EOS # 0.2 10*3/uL (0.0-0.4); EOS % 2.7 % (1.0-4.0); HEMATOCRIT 43.4 % (37.0-47.0); LYMPH # 1.1 10*3/uL (1.3-4.4); MEAN CELL VOLUME 98.2 fl (81.0-99.0); MEAN CORPUSCULAR HGB 29.6 pg (27.0-31.0); MEAN CORPUSCULAR HGB CONC 30.2 g/dl (33.0-37.0); MEAN PLATELET VOLUME 10.5 fl (9.6-12.3); MONO # 0.7 10*3/uL (0.1-1.0); MONO % 8.2 % (3.0-9.0); NEUT # 6.2 10*3/uL (2.3-7.9); NEUT % 75.3 % (47.0-73.0); PLATELET COUNT AUTOMATED 334 10*3/uL (130-400); RED BLOOD COUNT 4.42 10*6/uL (4.10-5.10); RED CELL DISTRI WIDTH 15.1 % (0-14.5); WHITE BLOOD COUNT 8.3 10*3/uL (4.8-10.8)
[2020-04-02 12:04] LABS: PTH INTACT 121.1 pg/mL (18.5-88.0); VITAMIN D, 25-HYDROXY 36.2 ng/mL (30-100)
== END | disposition home or self-care (01) ==
LOC: LAB 10:34
PROVIDERS: ATTEND Internal Medicine Nephrology
DX: E21.3 Hyperparathyroidism, unspecified (principal); Z94.0 Kidney transplant status

== ENCOUNTER → 2020-04-26 | Outpatient (CLI) | payer MEDICARE ==
[2020-04-26 11:01] LABS: BASO # 0.1 10*3/uL (0.0-0.1); BASO % 0.9 % (0.0-1.0); EOS # 0.2 10*3/uL (0.0-0.4); EOS % 2.3 % (1.0-4.0); HEMATOCRIT 45.4 % (37.0-47.0); LYMPH # 1.8 10*3/uL (1.3-4.4); LYMPH % 19.5 % (27.0-41.0); MEAN CELL VOLUME 96.8 fl (81.0-99.0); MEAN CORPUSCULAR HGB 29.9 pg (27.0-31.0); MEAN CORPUSCULAR HGB CONC 30.8 g/dl (33.0-37.0); MEAN PLATELET VOLUME 9.7 fl (9.6-12.3); MONO # 0.6 10*3/uL (0.1-1.0); MONO % 6.6 % (3.0-9.0); NEUT # 6.6 10*3/uL (2.3-7.9); NEUT % 69.7 % (47.0-73.0); PLATELET COUNT AUTOMATED 347 10*3/uL (130-400); RED BLOOD COUNT 4.69 10*6/uL (4.10-5.10); RED CELL DISTRI WIDTH 14.7 % (0-14.5); WHITE BLOOD COUNT 9.4 10*3/uL (4.8-10.8)
[2020-04-26 11:04] LABS: BILIRUBIN Negative (Negative); BLOOD Negative (Negative); CLARITY Cloudy (Clear); COLOR Yellow (Yellow); GLUCOSE Negative (Negative); KETONE Negative (Negative); LEUKO ESTERASE Negative (Negative); NITRITE Negative (Negative); UROBILINOGEN 0.2 E.U./dl (0.0-1.0)
[2020-04-26 11:17] LABS: ALBUMIN 3.7 gm/dl (3.1-4.5); CREATININE 2.03 mg/dL (0.55-1.02); POTASSIUM 4.2 mmol/L (3.5-5.1); TOTAL PROTEIN 7.5 gm/dL (6.4-8.2); URIC ACID 8.5 mg/dL (2.6-6.0)
[2020-04-26 11:21] LABS: BACTERIA 1+; EPITHELIAL CELLS 0-2; RBC 0-2 rbc/hpf (0-2); WBC 0-2 wbc/hpf (0-5)
[2020-04-26 11:56] LABS: VITAMIN D, 25-HYDROXY 27.3 ng/mL (30-100)
== END | disposition home or self-care (01) ==
LOC: LAB 10:38
PROVIDERS: ATTEND Internal Medicine Nephrology
DX: E21.3 Hyperparathyroidism, unspecified (principal); Z94.0 Kidney transplant status

== ENCOUNTER → 2020-07-20 | Outpatient (CLI) | payer MEDICARE ==
[2020-07-20 10:53] LABS: BILIRUBIN Negative (Negative); BLOOD Negative (Negative); CLARITY Clear (Clear); COLOR Yellow (Yellow); GLUCOSE Negative (Negative); KETONE Negative (Negative); LEUKO ESTERASE Negative (Negative); NITRITE Negative (Negative); PH 5.5 (4.5-8.0); SPECIFIC GRAVITY 1.015 (1.001-1.030); UROBILINOGEN 0.2 E.U./dl (0.0-1.0)
[2020-07-20 10:54] LABS: BASO % 0.4 % (0.0-1.0); EOS # 0.3 10*3/uL (0.0-0.4); EOS % 3.1 % (1.0-4.0); HEMATOCRIT 42.3 % (37.0-47.0); LYMPH # 1.3 10*3/uL (1.3-4.4); LYMPH % 14.3 % (27.0-41.0); MEAN CELL VOLUME 95.5 fl (81.0-99.0); MEAN CORPUSCULAR HGB 29.6 pg (27.0-31.0); MEAN PLATELET VOLUME 9.5 fl (9.6-12.3); MONO # 0.7 10*3/uL (0.1-1.0); MONO % 7.9 % (3.0-9.0); NEUT # 6.6 10*3/uL (2.3-7.9); PLATELET COUNT AUTOMATED 307 10*3/uL (130-400); RED BLOOD COUNT 4.43 10*6/uL (4.10-5.10); RED CELL DISTRI WIDTH 14.6 % (0-14.5); WHITE BLOOD COUNT 8.9 10*3/uL (4.8-10.8)
[2020-07-20 11:06] LABS: RBC 0-2 rbc/hpf (0-2); WBC 0-2 wbc/hpf (0-5)
[2020-07-20 11:23] LABS: ALBUMIN 3.3 gm/dl (3.1-4.5); POTASSIUM 4.8 mmol/L (3.5-5.1)
[2020-07-20 11:26] LABS: TOTAL PROTEIN 6.3 gm/dL (6.4-8.2)
[2020-07-20 11:42] LABS: FREE T4 1.04 ng/dl (0.76-1.46)
== END | disposition home or self-care (01) ==
LOC: LAB 10:23
PROVIDERS: Physician Assistant; ATTEND Internal Medicine Nephrology
DX: K21.9 Gastro-esophageal reflux disease without esophagitis (principal); E03.9 Hypothyroidism, unspecified; Q61.2 Polycystic kidney, adult type; Z94.0 Kidney transplant status

== ENCOUNTER → 2020-09-10 | Outpatient (CLI) | payer MEDICARE ==
[2020-09-10 10:57] LABS: BASO # 0.1 10*3/uL (0.0-0.1); BASO % 0.6 % (0.0-1.0); EOS # 0.3 10*3/uL (0.0-0.4); HEMATOCRIT 43.8 % (37.0-47.0); LYMPH # 1.5 10*3/uL (1.3-4.4); MEAN CELL VOLUME 97.6 fl (81.0-99.0); MEAN CORPUSCULAR HGB 30.3 pg (27.0-31.0); MEAN CORPUSCULAR HGB CONC 31.1 g/dl (33.0-37.0); MEAN PLATELET VOLUME 9.4 fl (9.6-12.3); MONO # 0.7 10*3/uL (0.1-1.0); MONO % 7.2 % (3.0-9.0); NEUT # 6.9 10*3/uL (2.3-7.9); NEUT % 72.8 % (47.0-73.0); PLATELET COUNT AUTOMATED 319 10*3/uL (130-400); RED BLOOD COUNT 4.49 10*6/uL (4.10-5.10); RED CELL DISTRI WIDTH 15.6 % (0-14.5); WHITE BLOOD COUNT 9.5 10*3/uL (4.8-10.8)
[2020-09-10 10:59] LABS: BILIRUBIN Negative (Negative); BLOOD Negative (Negative); CLARITY Clear (Clear); COLOR Yellow (Yellow); GLUCOSE Negative (Negative); KETONE Negative (Negative); LEUKO ESTERASE Negative (Negative); NITRITE Negative (Negative); PH 5.5 (4.5-8.0); UROBILINOGEN 0.2 E.U./dl (0.0-1.0)
[2020-09-10 11:28] LABS: ALBUMIN 3.4 gm/dl (3.1-4.5); CREATININE 1.76 mg/dL (0.55-1.02); POTASSIUM 3.8 mmol/L (3.5-5.1); URIC ACID 6.3 mg/dL (2.6-6.0)
[2020-09-10 11:30] LABS: TOTAL PROTEIN 6.6 gm/dL (6.4-8.2)
[2020-09-10 12:07] LABS: VITAMIN D, 25-HYDROXY 33.2 ng/mL (30-100)
[2020-09-10 12:09] LABS: PTH INTACT 154.2 pg/mL (18.5-88.0)
== END | disposition home or self-care (01) ==
LOC: LAB 10:35
PROVIDERS: ATTEND Internal Medicine Nephrology
DX: E21.3 Hyperparathyroidism, unspecified (principal); Z94.0 Kidney transplant status

== ENCOUNTER → 2020-10-16 | Outpatient (CLI) | payer MEDICARE ==
[2020-10-16 11:41] LABS: BASO % 0.5 % (0.0-1.0); EOS # 0.3 10*3/uL (0.0-0.4); EOS % 3.7 % (1.0-4.0); HEMATOCRIT 43.8 % (37.0-47.0); LYMPH # 1.4 10*3/uL (1.3-4.4); LYMPH % 17.4 % (27.0-41.0); MEAN CELL VOLUME 96.7 fl (81.0-99.0); MEAN CORPUSCULAR HGB 30.5 pg (27.0-31.0); MEAN CORPUSCULAR HGB CONC 31.5 g/dl (33.0-37.0); MEAN PLATELET VOLUME 9.7 fl (9.6-12.3); MONO # 0.7 10*3/uL (0.1-1.0); MONO % 8.3 % (3.0-9.0); NEUT # 5.7 10*3/uL (2.3-7.9); NEUT % 69.9 % (47.0-73.0); PLATELET COUNT AUTOMATED 271 10*3/uL (130-400); RED BLOOD COUNT 4.53 10*6/uL (4.10-5.10); RED CELL DISTRI WIDTH 15.4 % (0-14.5); WHITE BLOOD COUNT 8.2 10*3/uL (4.8-10.8)
[2020-10-16 11:46] LABS: BILIRUBIN Negative (Negative); BLOOD Negative (Negative); CLARITY Turbid (Clear); COLOR Yellow (Yellow); GLUCOSE Negative (Negative); KETONE Negative (Negative); LEUKO ESTERASE Negative (Negative); NITRITE Negative (Negative); PH 5.5 (4.5-8.0); SPECIFIC GRAVITY 1.025 (1.001-1.030); UROBILINOGEN 0.2 E.U./dl (0.0-1.0)
[2020-10-16 12:11] LABS: ALBUMIN 3.3 gm/dl (3.1-4.5); CREATININE 1.6 mg/dL (0.55-1.02); TOTAL PROTEIN 6.6 gm/dL (6.4-8.2); URIC ACID 5.4 mg/dL (2.6-6.0)
== END | disposition home or self-care (01) ==
LOC: LAB 10:53
PROVIDERS: ATTEND Internal Medicine Nephrology
DX: Z94.0 Kidney transplant status (principal)

== ENCOUNTER 2021-03-07 18:12 | Emergency (ER) | payer MEDICARE ==
[~2021-03-07] VITALS: Ht 162.5 cm; Wt 104.8 kg
[2021-03-07 18:26] VITALS: BP 178/84
[2021-03-07 19:06] LABS: BASO # 0.1 10*3/uL (0.0-0.1); BASO % 0.6 % (0.0-1.0); EOS # 0.1 10*3/uL (0.0-0.4); EOS % 0.7 % (1.0-4.0); HEMATOCRIT 46.2 % (37.0-47.0); LYMPH # 0.3 10*3/uL (1.3-4.4); LYMPH % 2.8 % (27.0-41.0); MEAN CELL VOLUME 97.9 fl (81.0-99.0); MEAN CORPUSCULAR HGB 30.5 pg (27.0-31.0); MEAN CORPUSCULAR HGB CONC 31.2 g/dl (33.0-37.0); MEAN PLATELET VOLUME 9.9 fl (9.6-12.3); MONO # 0.6 10*3/uL (0.1-1.0); MONO % 5.7 % (3.0-9.0); NEUT # 9.3 10*3/uL (2.3-7.9); NEUT % 89.6 % (47.0-73.0); PLATELET COUNT AUTOMATED 262 10*3/uL (130-400); RED BLOOD COUNT 4.72 10*6/uL (4.10-5.10); RED CELL DISTRI WIDTH 14.6 % (0-14.5); WHITE BLOOD COUNT 10.4 10*3/uL (4.8-10.8)
[2021-03-07 19:22] LABS: ALBUMIN 3.4 gm/dl (3.1-4.5); CREATININE 1.65 mg/dL (0.55-1.02); POTASSIUM 4.2 mmol/L (3.5-5.1); TOTAL PROTEIN 7.2 gm/dL (6.4-8.2)
[2021-03-07 20:23] LABS: BILIRUBIN Negative (Negative); BLOOD 1+ (Negative); CLARITY Cloudy (Clear); COLOR Yellow (Yellow); GLUCOSE Negative (Negative); KETONE Negative (Negative); LEUKO ESTERASE 3+ (Negative); NITRITE Positive (Negative); PH 5.5 (4.5-8.0); UROBILINOGEN 0.2 E.U./dl (0.0-1.0)
[2021-03-07 20:40] LABS: BACTERIA 4+; WBC TNTC wbc/hpf (0-5)
[2021-03-07] MEDS ORDERED: ZOFRAN4 MG PO (23:07)
[2021-03-07] MEDS ORDERED: CEFUROXIME AXE500 MG PO (23:07)
== END 2021-03-07 23:25 | disposition home or self-care (01) ==
LOC: ED 18:12
PROVIDERS: Physician Assistant
DX: N39.0 Urinary tract infection, site not specified (principal); Z79.899 Other long term (current) drug therapy

== ENCOUNTER → 2021-04-22 | Outpatient (CLI) | payer MEDICARE ==
[~2021-04-22] MED LIST changes: +CEFUROXIME AXE500 MG PO; +ZOFRAN4 MG PO
[2021-04-22 11:00] LABS: BASO # 0.1 10*3/uL (0.0-0.1); BASO % 0.9 % (0.0-1.0); EOS # 0.3 10*3/uL (0.0-0.4); EOS % 4.7 % (1.0-4.0); HEMATOCRIT 45.3 % (37.0-47.0); LYMPH # 1.3 10*3/uL (1.3-4.4); LYMPH % 23.1 % (27.0-41.0); MEAN CELL VOLUME 98.3 fl (81.0-99.0); MEAN CORPUSCULAR HGB 30.8 pg (27.0-31.0); MEAN CORPUSCULAR HGB CONC 31.3 g/dl (33.0-37.0); MEAN PLATELET VOLUME 9.2 fl (9.6-12.3); MONO # 0.4 10*3/uL (0.1-1.0); MONO % 7.9 % (3.0-9.0); NEUT # 3.5 10*3/uL (2.3-7.9); PLATELET COUNT AUTOMATED 263 10*3/uL (130-400); RED BLOOD COUNT 4.61 10*6/uL (4.10-5.10); RED CELL DISTRI WIDTH 15.3 % (0-14.5); WHITE BLOOD COUNT 5.6 10*3/uL (4.8-10.8)
[2021-04-22 11:03] LABS: BILIRUBIN Negative (Negative); BLOOD Trace-Lysed (Negative); CLARITY Clear (Clear); COLOR Yellow (Yellow); GLUCOSE Negative (Negative); KETONE Negative (Negative); LEUKO ESTERASE 3+ (Negative); NITRITE Negative (Negative); UROBILINOGEN 0.2 E.U./dl (0.0-1.0)
[2021-04-22 11:14] LABS: ALBUMIN 3.1 gm/dl (3.1-4.5); CREATININE 1.25 mg/dL (0.55-1.02); TOTAL PROTEIN 6.7 gm/dL (6.4-8.2)
[2021-04-22 11:17] LABS: WBC 31-40 wbc/hpf (0-5)
== END | disposition home or self-care (01) ==
LOC: LAB 10:41
PROVIDERS: ATTEND Internal Medicine Nephrology
DX: I10 Essential (primary) hypertension (principal); Z79.899 Other long term (current) drug therapy; Z94.0 Kidney transplant status

== ENCOUNTER → 2021-10-21 | Outpatient (CLI) | payer MEDICARE ==
[2021-10-21 09:25] LABS: BASO % 0.5 % (0.0-1.0); EOS # 0.1 10*3/uL (0.0-0.4); EOS % 1.8 % (1.0-4.0); LYMPH # 1.1 10*3/uL (1.3-4.4); MEAN CELL VOLUME 95.6 fl (81.0-99.0); MEAN CORPUSCULAR HGB CONC 31.4 g/dl (33.0-37.0); MEAN PLATELET VOLUME 9.2 fl (9.6-12.3); MONO # 0.5 10*3/uL (0.1-1.0); MONO % 6.3 % (3.0-9.0); NEUT # 6.1 10*3/uL (2.3-7.9); NEUT % 77.1 % (47.0-73.0); PLATELET COUNT AUTOMATED 287 10*3/uL (130-400); RED CELL DISTRI WIDTH 14.9 % (0-14.5); WHITE BLOOD COUNT 7.9 10*3/uL (4.8-10.8)
[2021-10-21 09:30] LABS: BILIRUBIN Negative (Negative); BLOOD Negative (Negative); CLARITY Clear (Clear); COLOR Yellow (Yellow); GLUCOSE Negative (Negative); KETONE Negative (Negative); NITRITE Negative (Negative); UROBILINOGEN 0.2 E.U./dl (0.0-1.0)
[2021-10-21 09:33] LABS: LEUKO ESTERASE 2+ (Negative)
[2021-10-21 09:40] LABS: CREATININE 1.64 mg/dL (0.55-1.02); POTASSIUM 3.8 mmol/L (3.5-5.1); TOTAL PROTEIN 6.7 gm/dL (6.4-8.2)
[2021-10-21 10:06] LABS: BACTERIA 1+; MUCOUS 1+
== END | disposition home or self-care (01) ==
LOC: LAB 09:00
PROVIDERS: ATTEND Internal Medicine Nephrology
DX: Z94.0 Kidney transplant status (principal)

== ENCOUNTER → 2022-01-17 | Outpatient (CLI) | payer MEDICARE ==
[2022-01-17 10:45] LABS: BASO % 0.4 % (0.0-1.0); EOS # 0.2 10*3/uL (0.0-0.4); EOS % 2.4 % (1.0-4.0); HEMATOCRIT 46.3 % (37.0-47.0); LYMPH # 1.5 10*3/uL (1.3-4.4); MEAN CELL VOLUME 95.5 fl (81.0-99.0); MEAN CORPUSCULAR HGB 29.7 pg (27.0-31.0); MEAN CORPUSCULAR HGB CONC 31.1 g/dl (33.0-37.0); MEAN PLATELET VOLUME 9.4 fl (9.6-12.3); MONO # 0.7 10*3/uL (0.1-1.0); MONO % 8.4 % (3.0-9.0); NEUT # 5.5 10*3/uL (2.3-7.9); NEUT % 69.5 % (47.0-73.0); PLATELET COUNT AUTOMATED 278 10*3/uL (130-400); RED BLOOD COUNT 4.85 10*6/uL (4.10-5.10); RED CELL DISTRI WIDTH 15.3 % (0-14.5); WHITE BLOOD COUNT 7.9 10*3/uL (4.8-10.8)
[2022-01-17 10:46] LABS: BILIRUBIN Negative (Negative); BLOOD Negative (Negative); CLARITY Clear (Clear); COLOR Yellow (Yellow); GLUCOSE Negative (Negative); KETONE Negative (Negative); LEUKO ESTERASE Negative (Negative); NITRITE Negative (Negative); SPECIFIC GRAVITY 1.015 (1.001-1.030); UROBILINOGEN 0.2 E.U./dl (0.0-1.0)
[2022-01-17 10:55] LABS: RBC 0-2 rbc/hpf (0-2)
[2022-01-17 11:01] LABS: CREATININE 1.78 mg/dL (0.55-1.02); POTASSIUM 4.3 mmol/L (3.5-5.1); TOTAL PROTEIN 6.7 gm/dL (6.4-8.2); URIC ACID 6.2 mg/dL (2.6-6.0)
[2022-01-17 11:10] LABS: VITAMIN D, 25-HYDROXY 21.1 ng/mL (30-100)
== END | disposition home or self-care (01) ==
LOC: LAB 10:25
PROVIDERS: ATTEND Internal Medicine Nephrology
DX: E21.3 Hyperparathyroidism, unspecified (principal); Z94.0 Kidney transplant status

== ENCOUNTER → 2022-03-07 | Outpatient (CLI) | payer MEDICARE ==
[2022-03-07 11:30] LABS: BASO # 0.1 10*3/uL (0.0-0.1); BASO % 0.5 % (0.0-1.0); EOS # 0.2 10*3/uL (0.0-0.4); EOS % 1.5 % (1.0-4.0); HEMATOCRIT 49.1 % (37.0-47.0); LYMPH # 1.6 10*3/uL (1.3-4.4); LYMPH % 13.2 % (27.0-41.0); MEAN CELL VOLUME 94.8 fl (81.0-99.0); MEAN CORPUSCULAR HGB 29.3 pg (27.0-31.0); MEAN PLATELET VOLUME 9.3 fl (9.6-12.3); MONO # 0.8 10*3/uL (0.1-1.0); MONO % 6.8 % (3.0-9.0); NEUT # 9.3 10*3/uL (2.3-7.9); NEUT % 77.6 % (47.0-73.0); PLATELET COUNT AUTOMATED 327 10*3/uL (130-400); RED BLOOD COUNT 5.18 10*6/uL (4.10-5.10); RED CELL DISTRI WIDTH 15.9 % (0-14.5)
[2022-03-07 11:32] LABS: BILIRUBIN Negative (Negative); BLOOD Trace-Lysed (Negative); CLARITY Clear (Clear); COLOR Yellow (Yellow); GLUCOSE Negative (Negative); KETONE Negative (Negative); LEUKO ESTERASE 2+ (Negative); NITRITE Negative (Negative); PH 6.5 (4.5-8.0); UROBILINOGEN 0.2 E.U./dl (0.0-1.0)
[2022-03-07 11:54] LABS: CREATININE 1.44 mg/dL (0.55-1.02); POTASSIUM 4.2 mmol/L (3.5-5.1); URIC ACID 6.3 mg/dL (2.6-6.0)
[2022-03-07 12:00] LABS: VITAMIN D, 25-HYDROXY 19.1 ng/mL (30-100)
== END | disposition home or self-care (01) ==
LOC: LAB 10:46
PROVIDERS: ATTEND Internal Medicine Nephrology
DX: E21.3 Hyperparathyroidism, unspecified (principal); Z94.0 Kidney transplant status

== ENCOUNTER → 2022-05-07 | Outpatient (CLI) | payer MEDICARE ==
[2022-05-07 10:36] LABS: BILIRUBIN Negative (Negative); BLOOD Negative (Negative); CLARITY Clear (Clear); COLOR Yellow (Yellow); GLUCOSE Negative (Negative); KETONE Trace (Negative); LEUKO ESTERASE Negative (Negative); NITRITE Negative (Negative); PH 5.5 (4.5-8.0)
[2022-05-07 10:37] LABS: BASO % 0.4 % (0.0-1.0); EOS # 0.1 10*3/uL (0.0-0.4); EOS % 0.7 % (1.0-4.0); HEMATOCRIT 45.4 % (37.0-47.0); LYMPH # 1.4 10*3/uL (1.3-4.4); LYMPH % 13.8 % (27.0-41.0); MEAN CORPUSCULAR HGB CONC 31.9 g/dl (33.0-37.0); MEAN PLATELET VOLUME 9.3 fl (9.6-12.3); MONO # 0.7 10*3/uL (0.1-1.0); MONO % 6.7 % (3.0-9.0); NEUT # 8.1 10*3/uL (2.3-7.9); PLATELET COUNT AUTOMATED 341 10*3/uL (130-400); RED BLOOD COUNT 4.83 10*6/uL (4.10-5.10); RED CELL DISTRI WIDTH 15.2 % (0-14.5); WHITE BLOOD COUNT 10.3 10*3/uL (4.8-10.8)
[2022-05-07 10:59] LABS: CREATININE 1.68 mg/dL (0.55-1.02); POTASSIUM 4.3 mmol/L (3.5-5.1); TOTAL PROTEIN 7.4 gm/dL (6.4-8.2); URIC ACID 5.7 mg/dL (2.6-6.0)
[2022-05-07 11:41] LABS: RBC 0-2 rbc/hpf (0-2); WBC 0-2 wbc/hpf (0-5)
== END | disposition home or self-care (01) ==
LOC: LAB 09:27 → MAMMO 09:30
PROVIDERS: Internal Medicine Nephrology; ATTEND Physician Assistant
DX: Z12.31 Encounter for screening mammogram for malignant neoplasm of breast (principal); E21.3 Hyperparathyroidism, unspecified; Z94.0 Kidney transplant status

== ENCOUNTER 2022-08-29 16:24 | Emergency (ER) | payer MEDICARE ==
[2022-08-29 18:25] LABS: HEMATOCRIT 46.4 % (37.0-47.0); MEAN CELL VOLUME 95.5 fl (81.0-99.0); MEAN CORPUSCULAR HGB 29.6 pg (27.0-31.0); MEAN PLATELET VOLUME 10.5 fl (9.6-12.3); NUCLEATED RED BLOOD CELL 0.2 % (0.0-0.0); PLATELET COUNT AUTOMATED 267 10*3/uL (130-400); RED BLOOD COUNT 4.86 10*6/uL (4.10-5.10); RED CELL DISTRI WIDTH 15.9 % (0-14.5); WHITE BLOOD COUNT 25.9 10*3/uL (4.8-10.8)
[2022-08-29 18:27] LABS: MANUAL DIFF REFLEX YES
[2022-08-29 18:36] LABS: ACT PARTIAL THROMBO TIME 26.7 SECONDS (20.0-32.1)
[2022-08-29 18:40] LABS: POTASSIUM 3.8 mmol/L (3.4-5.1); TOTAL PROTEIN 6.8 gm/dL (6.0-8.0)
[2022-08-29 18:44] LABS: PLATELET SUFFICIENCY NORMAL (NORMAL); TOTAL CELLS COUNTED 100 #CELLS; TOXIC GRANULATION SLIGHT
[2022-08-29 19:26] LABS: BILIRUBIN Negative (Negative); BLOOD 3+ (Negative); CLARITY Cloudy (Clear); COLOR Yellow (Yellow); GLUCOSE Negative (Negative); KETONE Trace (Negative); LEUKO ESTERASE Negative (Negative); NITRITE Negative (Negative); PH 5.5 (4.5-8.0); SPECIFIC GRAVITY 1.025 (1.001-1.030)
[2022-08-29 19:54] LABS: WBC 0-2 wbc/hpf (0-5)
[2022-08-29 22:47] VITALS: BP 155/82
== END 2022-08-29 23:54 | disposition short-term general hospital (02) ==
LOC: ED 16:24
PROVIDERS: Emergency Medicine; Nurse Practitioner Family
DX: D72.829 Elevated white blood cell count, unspecified (principal); G93.40 Encephalopathy, unspecified; Z91.041 Radiographic dye allergy status; Z98.890 Other specified postprocedural states; Z94.0 Kidney transplant status

== ENCOUNTER 2022-12-04 11:42 | Emergency (ER) | payer MEDICARE ==
[~2022-12-04] VITALS: Wt 99.8 kg
[2022-12-04 11:59] VITALS: BP 193/109
[2022-12-04] MEDS ORDERED: BACTRIM 400-801 EACH PO (12:03)
[2022-12-04 12:25] LABS: BILIRUBIN Negative (Negative); BLOOD Negative (Negative); CLARITY Clear (Clear); COLOR Yellow (Yellow); GLUCOSE Negative (Negative); KETONE Negative (Negative); LEUKO ESTERASE Negative (Negative); NITRITE Negative (Negative); PH 5.5 (4.5-8.0); UROBILINOGEN 0.2 E.U./dl (0.0-1.0)
[2022-12-04 12:38] LABS: BASO # 0.1 10*3/uL (0.0-0.1); BASO % 0.5 % (0.0-1.0); EOS # 0.1 10*3/uL (0.0-0.4); EOS % 1.2 % (1.0-4.0); LYMPH # 1.4 10*3/uL (1.3-4.4); LYMPH % 12.9 % (27.0-41.0); MEAN CELL VOLUME 92.4 fl (81.0-99.0); MEAN CORPUSCULAR HGB 29.4 pg (27.0-31.0); MEAN CORPUSCULAR HGB CONC 31.8 g/dl (33.0-37.0); MEAN PLATELET VOLUME 9.4 fl (9.6-12.3); MONO # 0.6 10*3/uL (0.1-1.0); NEUT # 8.4 10*3/uL (2.3-7.9); PLATELET COUNT AUTOMATED 303 10*3/uL (130-400); RED BLOOD COUNT 4.76 10*6/uL (4.10-5.10); RED CELL DISTRI WIDTH 14.3 % (0-14.5); WHITE BLOOD COUNT 10.6 10*3/uL (4.8-10.8)
[2022-12-04 12:40] LABS: BACTERIA TRACE; RBC 0-2 rbc/hpf (0-2)
[2022-12-04 13:13] LABS: ALKALINE PHOSPHATASE 96 U/L (46-116); BUN 25 mg/dl (9-23); CHLORIDE 107 mmol/L (98-107); LIPASE 31 U/L (12-53); POTASSIUM 3.9 mmol/L (3.4-5.1); TOTAL PROTEIN 6.9 gm/dL (6.0-8.0)
[2022-12-04 13:15] LABS: SGPT/ALT < 7 U/L (10-49)
[2022-12-04] MEDS ORDERED: ONDANSETRON4 MG SL (16:10)
== END 2022-12-04 12:09 | disposition home or self-care (01) ==
LOC: ED 11:42
PROVIDERS: Nurse Practitioner Family
DX: A08.4 Viral intestinal infection, unspecified (principal); E86.0 Dehydration; R11.2 Nausea with vomiting, unspecified; F32.A Depression, unspecified; J45.909 Unspecified asthma, uncomplicated; I10 Essential (primary) hypertension; Z91.041 Radiographic dye allergy status; Z98.890 Other specified postprocedural states; Z98.51 Tubal ligation status

== ENCOUNTER 2023-01-24 17:34 | Emergency (ER) | payer MEDICARE ==
[~2023-01-24] VITALS: Ht 160 cm; Wt 97.5 kg
[~2023-01-24 17:34] MED LIST changes: +BACTRIM 400-801 EACH PO; +ONDANSETRON4 MG SL
[2023-01-24 18:35] LABS: BASO % 0.2 % (0.0-1.0); EOS % 0.1 % (1.0-4.0); HEMATOCRIT 43.6 % (37.0-47.0); LYMPH # 0.7 10*3/uL (1.3-4.4); LYMPH % 3.6 % (27.0-41.0); MEAN CELL VOLUME 91.6 fl (81.0-99.0); MEAN CORPUSCULAR HGB 29.4 pg (27.0-31.0); MEAN CORPUSCULAR HGB CONC 32.1 g/dl (33.0-37.0); MEAN PLATELET VOLUME 9.5 fl (9.6-12.3); MONO # 1.4 10*3/uL (0.1-1.0); MONO % 7.9 % (3.0-9.0); NEUT # 16.1 10*3/uL (2.3-7.9); NEUT % 87.7 % (47.0-73.0); PLATELET COUNT AUTOMATED 197 10*3/uL (130-400); RED BLOOD COUNT 4.76 10*6/uL (4.10-5.10); RED CELL DISTRI WIDTH 14.3 % (0-14.5); WHITE BLOOD COUNT 18.3 10*3/uL (4.8-10.8)
[2023-01-24 18:46] LABS: ACT PARTIAL THROMBO TIME 31.3 SECONDS (20.0-32.1); INTERNATIONAL NORM RATIO 1.1 (2.0-3.5)
[2023-01-24 18:56] LABS: ALKALINE PHOSPHATASE 111 U/L (46-116); BUN 19 mg/dl (9-23); CHLORIDE 102 mmol/L (98-107); LIPASE 25 U/L (12-53); POTASSIUM 4.1 mmol/L (3.4-5.1); TOTAL PROTEIN 6.7 gm/dL (6.0-8.0)
[2023-01-24 18:57] LABS: SGPT/ALT < 7 U/L (10-49)
[2023-01-24 19:34] VITALS: BP 135/63
[2023-01-24 20:49] LABS: BILIRUBIN Negative (Negative); BLOOD 2+ (Negative); CLARITY Clear (Clear); COLOR Yellow (Yellow); GLUCOSE Negative (Negative); KETONE Negative (Negative); LEUKO ESTERASE 2+ (Negative); NITRITE Negative (Negative); PH 5.5 (4.5-8.0); SPECIFIC GRAVITY <= 1.005 (1.001-1.030); UROBILINOGEN 0.2 E.U./dl (0.0-1.0)
[2023-01-24 21:02] LABS: BACTERIA 3+; EPITHELIAL CELLS 0-2; WBC 41-50 wbc/hpf (0-5)
== END 2023-01-24 21:43 | disposition home or self-care (01) ==
LOC: ED 17:34
PROVIDERS: Internal Medicine
DX: A41.9 Sepsis, unspecified organism (principal); N39.0 Urinary tract infection, site not specified; I12.9 Hypertensive chronic kidney disease with stage 1 through stage 4 chronic kidney disease, or unspecified chronic kidney disease; N18.4 Chronic kidney disease, stage 4 (severe); K52.9 Noninfective gastroenteritis and colitis, unspecified; R79.82 Elevated C-reactive protein (CRP); E87.1 Hypo-osmolality and hyponatremia; Z91.041 Radiographic dye allergy status; Z98.890 Other specified postprocedural states; Z98.51 Tubal ligation status; F32.A Depression, unspecified; J45.909 Unspecified asthma, uncomplicated

== ENCOUNTER → 2023-02-10 | Outpatient (CLI) | payer MEDICARE ==
[2023-02-10 11:10] LABS: BASO # 0.1 10*3/uL (0.0-0.1); BASO % 0.5 % (0.0-1.0); EOS # 0.1 10*3/uL (0.0-0.4); EOS % 0.8 % (1.0-4.0); HEMATOCRIT 44.5 % (37.0-47.0); LYMPH # 1.1 10*3/uL (1.3-4.4); LYMPH % 7.5 % (27.0-41.0); MEAN CELL VOLUME 93.1 fl (81.0-99.0); MEAN CORPUSCULAR HGB 29.1 pg (27.0-31.0); MEAN CORPUSCULAR HGB CONC 31.2 g/dl (33.0-37.0); MEAN PLATELET VOLUME 9.4 fl (9.6-12.3); MONO # 0.9 10*3/uL (0.1-1.0); MONO % 6.5 % (3.0-9.0); NEUT # 12.1 10*3/uL (2.3-7.9); NEUT % 84.4 % (47.0-73.0); PLATELET COUNT AUTOMATED 325 10*3/uL (130-400); RED BLOOD COUNT 4.78 10*6/uL (4.10-5.10); RED CELL DISTRI WIDTH 15.1 % (0-14.5); WHITE BLOOD COUNT 14.4 10*3/uL (4.8-10.8)
[2023-02-10 11:12] LABS: BILIRUBIN Negative (Negative); BLOOD 1+ (Negative); CLARITY Turbid (Clear); COLOR Yellow (Yellow); GLUCOSE Negative (Negative); KETONE Negative (Negative); LEUKO ESTERASE 3+ (Negative); NITRITE Negative (Negative); PH 5.5 (4.5-8.0); UROBILINOGEN 0.2 E.U./dl (0.0-1.0)
[2023-02-10 11:40] LABS: ALKALINE PHOSPHATASE 86 U/L (46-116); BUN 25 mg/dl (9-23); CHLORIDE 103 mmol/L (98-107); TOTAL PROTEIN 6.9 gm/dL (6.0-8.0)
[2023-02-10 11:41] LABS: SGPT/ALT < 7 U/L (10-49)
[2023-02-10 11:43] LABS: VITAMIN D, 25-HYDROXY 39.3 ng/mL (30-100)
== END | disposition home or self-care (01) ==
LOC: LAB 10:23
PROVIDERS: ATTEND Internal Medicine Nephrology
DX: E21.3 Hyperparathyroidism, unspecified (principal); Z94.0 Kidney transplant status

== ENCOUNTER → 2023-05-01 | Outpatient (CLI) | payer MEDICARE ==
[2023-05-01 11:20] LABS: BASO % 0.4 % (0.0-1.0); EOS # 0.1 10*3/uL (0.0-0.4); EOS % 0.8 % (1.0-4.0); HEMATOCRIT 38.2 % (37.0-47.0); LYMPH # 1.9 10*3/uL (1.3-4.4); LYMPH % 20.3 % (27.0-41.0); MEAN CELL VOLUME 98.5 fl (81.0-99.0); MEAN CORPUSCULAR HGB 30.9 pg (27.0-31.0); MEAN CORPUSCULAR HGB CONC 31.4 g/dl (33.0-37.0); MEAN PLATELET VOLUME 8.7 fl (9.6-12.3); MONO # 0.6 10*3/uL (0.1-1.0); NEUT # 6.8 10*3/uL (2.3-7.9); NEUT % 71.9 % (47.0-73.0); PLATELET COUNT AUTOMATED 406 10*3/uL (130-400); RED BLOOD COUNT 3.88 10*6/uL (4.10-5.10); RED CELL DISTRI WIDTH 16.1 % (0-14.5); WHITE BLOOD COUNT 9.4 10*3/uL (4.8-10.8)
[2023-05-01 11:23] LABS: BILIRUBIN Negative (Negative); BLOOD Negative (Negative); CLARITY Clear (Clear); COLOR Yellow (Yellow); GLUCOSE Negative (Negative); KETONE Negative (Negative); LEUKO ESTERASE Negative (Negative); NITRITE Negative (Negative); PH 6.5 (4.5-8.0); SPECIFIC GRAVITY 1.015 (1.001-1.030); UROBILINOGEN 0.2 E.U./dl (0.0-1.0)
[2023-05-01 11:31] LABS: URINE CREATININE RANDOM 81.64 mg/dL
[2023-05-01 11:44] LABS: VITAMIN D, 25-HYDROXY 31.2 ng/mL (30-100)
[2023-05-01 11:47] LABS: BACTERIA 1+
[2023-05-01 11:51] LABS: ALKALINE PHOSPHATASE 76 U/L (46-116); BUN 15 mg/dl (9-23); CHLORIDE 109 mmol/L (98-107); POTASSIUM 4.6 mmol/L (3.4-5.1); URIC ACID 3.7 mg/dL (3.1-7.8)
[2023-05-01 11:52] LABS: SGPT/ALT < 7 U/L (5-49)
== END | disposition home or self-care (01) ==
LOC: LAB 10:56
PROVIDERS: ATTEND Internal Medicine Nephrology
DX: E21.3 Hyperparathyroidism, unspecified (principal); D63.1 Anemia in chronic kidney disease; E79.0 Hyperuricemia without signs of inflammatory arthritis and tophaceous disease; Z94.0 Kidney transplant status

== ENCOUNTER → 2023-06-19 | Outpatient (CLI) | payer MEDICARE ==
[2023-06-19 11:35] LABS: BASO % 0.5 % (0.0-1.0); EOS # 0.2 10*3/uL (0.0-0.4); EOS % 1.9 % (1.0-4.0); HEMATOCRIT 36.9 % (37.0-47.0); LYMPH # 1.3 10*3/uL (1.3-4.4); LYMPH % 14.9 % (27.0-41.0); MEAN CELL VOLUME 95.8 fl (81.0-99.0); MEAN CORPUSCULAR HGB 30.4 pg (27.0-31.0); MEAN CORPUSCULAR HGB CONC 31.7 g/dl (33.0-37.0); MEAN PLATELET VOLUME 8.9 fl (9.6-12.3); MONO # 0.6 10*3/uL (0.1-1.0); MONO % 6.9 % (3.0-9.0); NEUT # 6.5 10*3/uL (2.3-7.9); NEUT % 75.6 % (47.0-73.0); PLATELET COUNT AUTOMATED 319 10*3/uL (130-400); RED BLOOD COUNT 3.85 10*6/uL (4.10-5.10); RED CELL DISTRI WIDTH 14.5 % (0-14.5); WHITE BLOOD COUNT 8.6 10*3/uL (4.8-10.8)
[2023-06-19 11:44] LABS: BILIRUBIN Negative (Negative); BLOOD Trace-Lysed (Negative); CLARITY Cloudy (Clear); COLOR Yellow (Yellow); GLUCOSE Negative (Negative); KETONE Negative (Negative); LEUKO ESTERASE 3+ (Negative); NITRITE Negative (Negative); UROBILINOGEN 0.2 E.U./dl (0.0-1.0)
[2023-06-19 11:47] LABS: URINE CREATININE RANDOM 89.6 mg/dL
[2023-06-19 12:00] LABS: BACTERIA 2+; WBC TNTC wbc/hpf (0-5)
[2023-06-19 12:10] LABS: URIC ACID 6.2 mg/dL (3.1-7.8)
[2023-06-19 12:13] LABS: ALKALINE PHOSPHATASE 81 U/L (46-116); BUN 22 mg/dl (9-23); CHLORIDE 111 mmol/L (98-107); CHOLESTEROL 175 mg/dL (<200); LDL CHOLESTEROL 79 mg/dL (9-159); POTASSIUM 4.4 mmol/L (3.4-5.1); SGPT/ALT < 7 U/L (5-49); TOTAL PROTEIN 6.1 gm/dL (6.0-8.0); TRIGLYCERIDES 264 mg/dl (<150)
[2023-06-19 12:14] LABS: VITAMIN D, 25-HYDROXY 32.5 ng/mL (30-100)
[2023-06-19 12:29] LABS: FREE T4 1.39 ng/dl (0.89-1.76)
[2023-06-24 13:06] LABS: LACOSAMIDE 4.3 ug/mL (5.0-10.0)
== END | disposition home or self-care (01) ==
LOC: LAB 11:01
PROVIDERS: Internal Medicine Nephrology; Physician Assistant; ATTEND Psychiatry & Neurology Neurology
DX: K21.9 Gastro-esophageal reflux disease without esophagitis (principal); F41.1 Generalized anxiety disorder; E03.9 Hypothyroidism, unspecified; R56.9 Unspecified convulsions; D63.1 Anemia in chronic kidney disease; E21.3 Hyperparathyroidism, unspecified; Z94.0 Kidney transplant status

== ENCOUNTER → 2023-09-04 | Outpatient (CLI) | payer MEDICARE ==
[2023-09-04 10:51] LABS: BASO # 0.1 10*3/uL (0.0-0.1); BASO % 0.8 % (0.0-1.0); EOS # 0.2 10*3/uL (0.0-0.4); EOS % 2.3 % (1.0-4.0); HEMATOCRIT 40.7 % (37.0-47.0); LYMPH % 23.5 % (27.0-41.0); MEAN CELL VOLUME 94.7 fl (81.0-99.0); MEAN CORPUSCULAR HGB 29.1 pg (27.0-31.0); MEAN CORPUSCULAR HGB CONC 30.7 g/dl (33.0-37.0); MEAN PLATELET VOLUME 9.2 fl (9.6-12.3); MONO # 0.6 10*3/uL (0.1-1.0); MONO % 7.2 % (3.0-9.0); NEUT # 5.5 10*3/uL (2.3-7.9); PLATELET COUNT AUTOMATED 276 10*3/uL (130-400); RED CELL DISTRI WIDTH 14.6 % (0-14.5); WHITE BLOOD COUNT 8.4 10*3/uL (4.8-10.8)
[2023-09-04 10:59] LABS: URINE CREATININE RANDOM 168.79 mg/dL
[2023-09-04 11:01] LABS: BILIRUBIN Negative (Negative); BLOOD Negative (Negative); CLARITY Clear (Clear); COLOR Yellow (Yellow); GLUCOSE Negative (Negative); KETONE Negative (Negative); LEUKO ESTERASE Negative (Negative); NITRITE Negative (Negative); PH 5.5 (4.5-8.0); UROBILINOGEN 0.2 E.U./dl (0.0-1.0)
[2023-09-04 11:17] LABS: POTASSIUM 3.9 mmol/L (3.4-5.1); TOTAL PROTEIN 6.7 gm/dL (6.0-8.0); URIC ACID 4.6 mg/dL (3.1-7.8)
[2023-09-04 11:18] LABS: BACTERIA 1+; HYALINE CAST 0-2
[2023-09-04 11:19] LABS: EPITHELIAL CELLS 0-2; RBC 0-2 rbc/hpf (0-2); VITAMIN D, 25-HYDROXY 33.5 ng/mL (30-100)
== END | disposition home or self-care (01) ==
LOC: LAB 10:22
PROVIDERS: ATTEND Internal Medicine Nephrology
DX: E79.0 Hyperuricemia without signs of inflammatory arthritis and tophaceous disease (principal); D63.1 Anemia in chronic kidney disease; E21.3 Hyperparathyroidism, unspecified; Z94.0 Kidney transplant status

== ENCOUNTER → 2023-10-02 | Outpatient (CLI) | payer MEDICARE ==
[2023-10-02 11:04] LABS: BASO # 0.1 10*3/uL (0.0-0.1); BASO % 0.8 % (0.0-1.0); EOS # 0.2 10*3/uL (0.0-0.4); HEMATOCRIT 39.5 % (37.0-47.0); LYMPH # 1.7 10*3/uL (1.3-4.4); LYMPH % 20.9 % (27.0-41.0); MEAN CELL VOLUME 96.1 fl (81.0-99.0); MEAN CORPUSCULAR HGB 29.7 pg (27.0-31.0); MEAN CORPUSCULAR HGB CONC 30.9 g/dl (33.0-37.0); MEAN PLATELET VOLUME 9.8 fl (9.6-12.3); MONO # 0.7 10*3/uL (0.1-1.0); MONO % 8.6 % (3.0-9.0); NEUT # 5.3 10*3/uL (2.3-7.9); NEUT % 66.3 % (47.0-73.0); PLATELET COUNT AUTOMATED 313 10*3/uL (130-400); RED BLOOD COUNT 4.11 10*6/uL (4.10-5.10); RED CELL DISTRI WIDTH 14.6 % (0-14.5); WHITE BLOOD COUNT 7.9 10*3/uL (4.8-10.8)
[2023-10-02 11:18] LABS: TOTAL PROTEIN 6.5 gm/dL (6.0-8.0); URIC ACID 5.1 mg/dL (3.1-7.8)
[2023-10-02 11:35] LABS: VITAMIN D, 25-HYDROXY 39.8 ng/mL (30-100)
[2023-10-07 01:06] LABS: LACOSAMIDE 6.2 ug/mL (5.0-10.0)
== END | disposition home or self-care (01) ==
LOC: LAB 10:26
PROVIDERS: Internal Medicine Nephrology; ATTEND Nurse Practitioner Family
DX: G40.419 Other generalized epilepsy and epileptic syndromes, intractable, without status epilepticus (principal); E79.0 Hyperuricemia without signs of inflammatory arthritis and tophaceous disease; E21.3 Hyperparathyroidism, unspecified; Z94.0 Kidney transplant status

== ENCOUNTER 2024-01-21 18:43 | Emergency (ER) | payer MEDICARE ==
[~2024-01-21] VITALS: Ht 160 cm; Wt 99.8 kg
[2024-01-21 19:31] LABS: BASO # 0.1 10*3/uL (0.0-0.1); BASO % 0.3 % (0.0-1.0); EOS # 0.1 10*3/uL (0.0-0.4); EOS % 0.6 % (1.0-4.0); HEMATOCRIT 38.6 % (37.0-47.0); LYMPH # 1.7 10*3/uL (1.3-4.4); LYMPH % 10.4 % (27.0-41.0); MEAN CELL VOLUME 95.1 fl (81.0-99.0); MEAN CORPUSCULAR HGB 30.8 pg (27.0-31.0); MEAN CORPUSCULAR HGB CONC 32.4 g/dl (33.0-37.0); MEAN PLATELET VOLUME 9.1 fl (9.6-12.3); MONO # 1.2 10*3/uL (0.1-1.0); MONO % 7.7 % (3.0-9.0); NEUT # 12.9 10*3/uL (2.3-7.9); NEUT % 80.7 % (47.0-73.0); PLATELET COUNT AUTOMATED 331 10*3/uL (130-400); RED BLOOD COUNT 4.06 10*6/uL (4.10-5.10); RED CELL DISTRI WIDTH 13.9 % (0-14.5); WHITE BLOOD COUNT 15.9 10*3/uL (4.8-10.8)
[2024-01-21 19:49] LABS: ALKALINE PHOSPHATASE 83 U/L (46-116); BUN 19 mg/dl (9-23); CHLORIDE 110 mmol/L (98-107); POTASSIUM 3.7 mmol/L (3.4-5.1); SGPT/ALT 36 U/L (5-49); TOTAL PROTEIN 7.1 gm/dL (6.0-8.0)
[2024-01-21 19:51] LABS: ETHYL ALCOHOL < 3.0 mg/dl (<3)
[2024-01-21 20:51] LABS: BILIRUBIN Negative (Negative); BLOOD 2+ (Negative); CLARITY Clear (Clear); COLOR Yellow (Yellow); GLUCOSE Negative (Negative); KETONE Trace (Negative); LEUKO ESTERASE Trace (Negative); NITRITE Negative (Negative); SPECIFIC GRAVITY >= 1.030 (1.001-1.030)
[2024-01-21 20:58] LABS: URINE AMPHETAMINES Negative (1000ng/ml); URINE BARBITURATES Negative (200ng/ml); URINE BENZODIAZEPINES Negative (200ng/ml); URINE CANNABINOIDS (THC) Positive (50ng/ml); URINE COCAINE Negative (300ng/ml); URINE METHADONE Negative (300ng/ml); URINE OPIATES Negative (300ng/ml); URINE PHENCYCLIDINE Negative (25ng/ml)
[2024-01-21 21:00] VITALS: BP 165/71
[2024-01-21 21:03] LABS: BACTERIA 1+
[2024-01-21] MEDS ORDERED: AMOX-CLAV 875-1 EACH PO (21:47)
[2024-01-21] MEDS ORDERED: Amoxicillin/Clavulanate Pota 875 MG TAB PO ONE (21:50)
== END 2024-01-21 22:05 | disposition home or self-care (01) ==
LOC: ED 18:43
PROVIDERS: Internal Medicine
DX: J32.9 Chronic sinusitis, unspecified (principal); N39.0 Urinary tract infection, site not specified; F32.A Depression, unspecified; J45.909 Unspecified asthma, uncomplicated; I10 Essential (primary) hypertension; Z91.041 Radiographic dye allergy status; Z95.5 Presence of coronary angioplasty implant and graft; Z98.890 Other specified postprocedural states

== ENCOUNTER → 2024-05-25 | Outpatient (CLI) | payer MEDICARE ==
[~2024-05-25] MED LIST changes: +AMOX-CLAV 875-1 EACH PO
[2024-05-25 10:42] LABS: BILIRUBIN Negative (Negative); BLOOD 1+ (Negative); CLARITY Turbid (Clear); COLOR Yellow (Yellow); GLUCOSE Negative (Negative); KETONE Negative (Negative); LEUKO ESTERASE 3+ (Negative); NITRITE Negative (Negative); SPECIFIC GRAVITY 1.015 (1.001-1.030); UROBILINOGEN 0.2 E.U./dl (0.0-1.0)
[2024-05-25 11:04] LABS: BASO # 0.1 10*3/uL (0.0-0.1); BASO % 0.7 % (0.0-1.0); EOS # 0.3 10*3/uL (0.0-0.4); EOS % 2.7 % (1.0-4.0); HEMATOCRIT 36.8 % (37.0-47.0); MEAN CELL VOLUME 94.6 fl (81.0-99.0); MEAN CORPUSCULAR HGB 30.6 pg (27.0-31.0); MEAN CORPUSCULAR HGB CONC 32.3 g/dl (33.0-37.0); MEAN PLATELET VOLUME 9.4 fl (9.6-12.3); MONO # 0.7 10*3/uL (0.1-1.0); MONO % 6.6 % (3.0-9.0); NEUT # 6.9 10*3/uL (2.3-7.9); NEUT % 66.7 % (47.0-73.0); PLATELET COUNT AUTOMATED 341 10*3/uL (130-400); RED BLOOD COUNT 3.89 10*6/uL (4.10-5.10); RED CELL DISTRI WIDTH 14.7 % (0-14.5); WHITE BLOOD COUNT 10.4 10*3/uL (4.8-10.8)
[2024-05-25 11:10] LABS: URINE CREATININE RANDOM 128.31 mg/dL
[2024-05-25 11:34] LABS: POTASSIUM 4.6 mmol/L (3.4-5.1); TOTAL PROTEIN 6.4 gm/dL (6.0-8.0); URIC ACID 5.3 mg/dL (3.1-7.8)
[2024-05-25 11:38] LABS: VITAMIN D, 25-HYDROXY 39.8 ng/mL (30-100)
[2024-05-25 12:19] LABS: RBC 21-30 rbc/hpf (0-2); WBC TNTC wbc/hpf (0-5)
[2024-05-25 12:20] LABS: BACTERIA 3+
== END | disposition home or self-care (01) ==
LOC: LAB 10:10
PROVIDERS: Internal Medicine Nephrology; ATTEND Nurse Practitioner Family
DX: G40.419 Other generalized epilepsy and epileptic syndromes, intractable, without status epilepticus (principal); E21.3 Hyperparathyroidism, unspecified; E79.0 Hyperuricemia without signs of inflammatory arthritis and tophaceous disease; D63.1 Anemia in chronic kidney disease; Z94.0 Kidney transplant status

== ENCOUNTER → 2024-06-17 | Outpatient (CLI) | payer MEDICARE ==
[2024-06-17 11:20] LABS: BASO # 0.1 10*3/uL (0.0-0.1); BASO % 0.9 % (0.0-1.0); EOS # 0.2 10*3/uL (0.0-0.4); EOS % 2.5 % (1.0-4.0); HEMATOCRIT 37.7 % (37.0-47.0); MEAN CELL VOLUME 97.2 fl (81.0-99.0); MEAN CORPUSCULAR HGB 29.9 pg (27.0-31.0); MEAN CORPUSCULAR HGB CONC 30.8 g/dl (33.0-37.0); MEAN PLATELET VOLUME 9.6 fl (9.6-12.3); MONO # 0.7 10*3/uL (0.1-1.0); MONO % 8.1 % (3.0-9.0); NEUT # 5.2 10*3/uL (2.3-7.9); NEUT % 63.4 % (47.0-73.0); PLATELET COUNT AUTOMATED 305 10*3/uL (130-400); RED BLOOD COUNT 3.88 10*6/uL (4.10-5.10); RED CELL DISTRI WIDTH 14.6 % (0-14.5); WHITE BLOOD COUNT 8.2 10*3/uL (4.8-10.8)
[2024-06-17 11:59] LABS: CHOLESTEROL 223 mg/dL (<200); LDL CHOLESTEROL 114 mg/dL (9-159); TRIGLYCERIDES 307 mg/dl (<150)
[2024-06-17 11:59] LABS: ALKALINE PHOSPHATASE 79 U/L (46-116); BUN 21 mg/dl (9-23); CHLORIDE 107 mmol/L (98-107); POTASSIUM 3.9 mmol/L (3.4-5.1); SGPT/ALT 7 U/L (5-49); TOTAL PROTEIN 6.7 gm/dL (6.0-8.0); URIC ACID 5.6 mg/dL (3.1-7.8)
[2024-06-17 12:00] LABS: VITAMIN D, 25-HYDROXY 36.5 ng/mL (30-100)
[2024-06-23 10:07] LABS: LACOSAMIDE 8.1 ug/mL (5.0-10.0)
== END | disposition home or self-care (01) ==
LOC: LAB 10:47
PROVIDERS: Internal Medicine Nephrology; ATTEND Nurse Practitioner Family
DX: R55 Syncope and collapse (principal); E21.3 Hyperparathyroidism, unspecified; G40.419 Other generalized epilepsy and epileptic syndromes, intractable, without status epilepticus; D63.1 Anemia in chronic kidney disease; Z94.0 Kidney transplant status

== ENCOUNTER → 2024-10-10 | Outpatient (CLI) | payer MEDICARE ==
[2024-10-10 11:09] LABS: BASO # 0.1 10*3/uL (0.0-0.1); BASO % 0.7 % (0.0-1.0); EOS # 0.3 10*3/uL (0.0-0.4); HEMATOCRIT 42.1 % (37.0-47.0); MEAN CELL VOLUME 95.2 fl (81.0-99.0); MEAN CORPUSCULAR HGB 29.9 pg (27.0-31.0); MEAN CORPUSCULAR HGB CONC 31.4 g/dl (33.0-37.0); MEAN PLATELET VOLUME 9.1 fl (9.6-12.3); MONO # 0.6 10*3/uL (0.1-1.0); MONO % 6.5 % (3.0-9.0); NEUT # 5.9 10*3/uL (2.3-7.9); NEUT % 69.5 % (47.0-73.0); PLATELET COUNT AUTOMATED 322 10*3/uL (130-400); RED BLOOD COUNT 4.42 10*6/uL (4.10-5.10); RED CELL DISTRI WIDTH 14.5 % (0-14.5); WHITE BLOOD COUNT 8.6 10*3/uL (4.8-10.8)
[2024-10-10 11:16] LABS: BILIRUBIN Negative (Negative); BLOOD Negative (Negative); CLARITY Clear (Clear); COLOR Yellow (Yellow); GLUCOSE Negative (Negative); KETONE Negative (Negative); LEUKO ESTERASE 1+ (Negative); NITRITE Negative (Negative); PH 6.5 (4.5-8.0); UROBILINOGEN 0.2 E.U./dl (0.0-1.0)
[2024-10-10 11:39] LABS: POTASSIUM 4.4 mmol/L (3.4-5.1); TOTAL PROTEIN 6.9 gm/dL (6.0-8.0); URIC ACID 5.7 mg/dL (3.1-7.8)
[2024-10-10 11:49] LABS: VITAMIN D, 25-HYDROXY 33.4 ng/mL (30-100)
[2024-10-10 13:04] LABS: BACTERIA 1+
[2024-10-14 19:07] LABS: LACOSAMIDE 5.1 ug/mL (5.0-10.0)
== END | disposition home or self-care (01) ==
LOC: LAB 10:37
PROVIDERS: Nurse Practitioner Family; ATTEND Internal Medicine Nephrology
DX: G40.419 Other generalized epilepsy and epileptic syndromes, intractable, without status epilepticus (principal); E79.0 Hyperuricemia without signs of inflammatory arthritis and tophaceous disease; E21.3 Hyperparathyroidism, unspecified; D63.1 Anemia in chronic kidney disease; Z94.0 Kidney transplant status

== ENCOUNTER → 2025-01-12 | Outpatient (CLI) | payer MEDICARE ==
[2025-01-12 11:51] LABS: BASO # 0.1 10*3/uL (0.0-0.1); BASO % 0.5 % (0.0-1.0); EOS # 0.1 10*3/uL (0.0-0.4); EOS % 1.3 % (1.0-4.0); MEAN CELL VOLUME 94.7 fl (81.0-99.0); MEAN CORPUSCULAR HGB 30.6 pg (27.0-31.0); MEAN PLATELET VOLUME 9.3 fl (9.6-12.3); MONO # 0.8 10*3/uL (0.1-1.0); MONO % 7.7 % (3.0-9.0); NEUT # 7.3 10*3/uL (2.3-7.9); NEUT % 69.8 % (47.0-73.0); NUCLEATED RED BLOOD CELL 0.0 % (0.0-0.0); NUCLEATED RED BLOOD CELL 0.0 10*3/uL (0.0-0.0); PLATELET COUNT AUTOMATED 312 10*3/uL (130-400); RED CELL DISTRI WIDTH 14.2 % (0-14.5)
[2025-01-12 11:52] LABS: BILIRUBIN Negative (Negative); BLOOD Negative (Negative); CLARITY Clear (Clear); COLOR Yellow (Yellow); KETONE Negative (Negative); LEUKO ESTERASE 2+ (Negative); NITRITE Negative (Negative); PH 5.5 (4.5-8.0); SPECIFIC GRAVITY 1.015 (1.001-1.030); UROBILINOGEN 1.0 E.U./dl (0.0-1.0)
[2025-01-12 12:07] LABS: BACTERIA 2+; MUCOUS TRACE
[2025-01-12 12:36] LABS: BUN 23.0 mg/dl (9-23); SGPT/ALT 9.0 U/L (5-49)
[2025-01-12 12:47] LABS: VITAMIN D, 25-HYDROXY 36.4 ng/mL (30-100)
== END | disposition home or self-care (01) ==
LOC: LAB 11:23
PROVIDERS: Nurse Practitioner Family; ATTEND Internal Medicine Nephrology
DX: E21.3 Hyperparathyroidism, unspecified (principal); N18.9 Chronic kidney disease, unspecified; D63.1 Anemia in chronic kidney disease; G40.919 Epilepsy, unspecified, intractable, without status epilepticus; Z94.0 Kidney transplant status

== ENCOUNTER → 2025-05-29 | Outpatient (CLI) | payer MEDICARE, MEDICAID ==
[2025-05-29 12:17] LABS: BASO # 0.1 10*3/uL (0.0-0.1); BASO % 0.7 % (0.0-1.0); EOS # 0.2 10*3/uL (0.0-0.4); EOS % 1.7 % (1.0-4.0); MEAN CELL VOLUME 95.1 fl (81.0-99.0); MEAN CORPUSCULAR HGB 30.0 pg (27.0-31.0); MEAN PLATELET VOLUME 8.7 fl (9.6-12.3); MONO # 0.8 10*3/uL (0.1-1.0); MONO % 6.2 % (3.0-9.0); NEUT # 9.1 10*3/uL (2.3-7.9); NEUT % 75.2 % (47.0-73.0); NUCLEATED RED BLOOD CELL 0.0 % (0.0-0.0); NUCLEATED RED BLOOD CELL 0.0 10*3/uL (0.0-0.0); PLATELET COUNT AUTOMATED 315 10*3/uL (130-400); RED CELL DISTRI WIDTH 13.5 % (0-14.5)
[2025-05-29 12:22] LABS: BILIRUBIN Negative (Negative); BLOOD Negative (Negative); CLARITY Clear (Clear); COLOR Yellow (Yellow); KETONE Negative (Negative); LEUKO ESTERASE 2+ (Negative); NITRITE Negative (Negative); PH 5.5 (4.5-8.0); SPECIFIC GRAVITY 1.020 (1.001-1.030); UROBILINOGEN 0.2 E.U./dl (0.0-1.0)
[2025-05-29 12:39] LABS: BACTERIA 1+; WBC 21-30 wbc/hpf (0-5)
[2025-05-29 12:49] LABS: BUN 16 mg/dl (9-23)
[2025-05-29 12:53] LABS: VITAMIN D, 25-HYDROXY 29.9 ng/mL (30-100)
[2025-05-29 12:59] LABS: SGPT/ALT < 7 U/L (5-49)
== END ==
LOC: LAB 11:37
PROVIDERS: ATTEND Internal Medicine Nephrology
DX: G40.419 Other generalized epilepsy and epileptic syndromes, intractable, without status epilepticus (principal); E21.3 Hyperparathyroidism, unspecified; D63.1 Anemia in chronic kidney disease; Z94.0 Kidney transplant status